=== PATIENT | male | born 1965 | race Caucasian/White ===

== ENCOUNTER 2016-10-31 11:36 | Outpatient (CLI) | payer OTHER ==
[~2016-10-31 11:36] MED LIST: /WARF5TA PO; ALPHA PROTEINASE INHIBITOR IV ONE; AMLO10TA PO; ASPI81CH PO; ATEN50TA2 PO; COMBAER6 INH; COUM7.5T PO; DILUENT IV ONE; FLEC50TA PO; GLIM2TAB PO; GLIM4TAB PO; JANU100T PO; LOVE0.8I SC; MAGN400T5 PO; METO50TA2 PO; NICO21PAT EXT; ROXI1TAB2 PO; TRAZ150T14 PO; VICT18IN SC; XARE15TA PO; ZOLO50TA PO; [UNRECOGNIZED DRUG - OTHER] PO
== END 2016-10-31 12:25 | disposition home or self-care (01) ==
LOC: M INFU 11:36
PROVIDERS: ATTEND Hospitalist
DX: E88.01 Alpha-1-antitrypsin deficiency (principal); J43.1 Panlobular emphysema; Z88.6 Allergy status to analgesic agent; Z88.5 Allergy status to narcotic agent; Z91.041 Radiographic dye allergy status; Z79.84 Long term (current) use of oral hypoglycemic drugs; Z79.01 Long term (current) use of anticoagulants; Z79.899 Other long term (current) drug therapy
CPT/HCPCS: 96365; J0256

== ENCOUNTER 2016-11-07 08:43 | Outpatient (CLI) | payer OTHER ==
[~2016-11-07] VITALS: Ht 172.7 cm; Wt 111.4 kg
[~2016-11-07 08:43] MED LIST changes: -ALPHA PROTEINASE INHIBITOR IV ONE; -DILUENT IV ONE
[2016-11-07] MEDS ORDERED: DILUENT IV ONE (09:30)
[2016-11-07] MEDS ORDERED: ALPHA PROTEINASE INHIBITOR IV ONE (09:30)
== END 2016-11-07 10:00 | disposition home or self-care (01) ==
LOC: M INFU 08:43
PROVIDERS: ATTEND Internal Medicine
DX: E88.01 Alpha-1-antitrypsin deficiency (principal); J43.1 Panlobular emphysema; I10 Essential (primary) hypertension; E11.9 Type 2 diabetes mellitus without complications; M32.9 Systemic lupus erythematosus, unspecified; I73.9 Peripheral vascular disease, unspecified; Z91.041 Radiographic dye allergy status; Z88.5 Allergy status to narcotic agent; Z88.6 Allergy status to analgesic agent; Z79.84 Long term (current) use of oral hypoglycemic drugs; Z79.01 Long term (current) use of anticoagulants; Z79.899 Other long term (current) drug therapy
CPT/HCPCS: 96365; J0256

== ENCOUNTER 2016-11-14 10:56 | Outpatient (CLI) | payer OTHER ==
[2016-11-14] MEDS ORDERED: DILUENT IV ONE (11:00)
[2016-11-14] MEDS ORDERED: ALPHA PROTEINASE INHIBITOR IV ONE (11:00)
== END 2016-11-14 12:00 | disposition home or self-care (01) ==
LOC: M INFU 10:56
PROVIDERS: ATTEND Internal Medicine
DX: E88.01 Alpha-1-antitrypsin deficiency (principal); J43.1 Panlobular emphysema; E11.9 Type 2 diabetes mellitus without complications; M32.9 Systemic lupus erythematosus, unspecified; M51.9 Unspecified thoracic, thoracolumbar and lumbosacral intervertebral disc disorder; Z91.041 Radiographic dye allergy status; Z88.5 Allergy status to narcotic agent; Z88.6 Allergy status to analgesic agent; Z79.84 Long term (current) use of oral hypoglycemic drugs; Z79.01 Long term (current) use of anticoagulants; Z87.442 Personal history of urinary calculi; Z86.718 Personal history of other venous thrombosis and embolism; Z79.899 Other long term (current) drug therapy; F17.200 Nicotine dependence, unspecified, uncomplicated
CPT/HCPCS: 96365; J0256

== ENCOUNTER → 2016-11-15 | Outpatient (REF) | payer OTHER ==
[2016-11-15 18:23] LABS: ALBUMIN/GLOBULIN RATIO 1.25 (1.00-1.93); ALKALINE PHOSPHATASE 106 U/L (45-117); ALT/SGPT 33 U/L (12-78); ANION GAP 9 MEQ/L (8-16); AST/SGOT 11 U/L (15-37); BILIRUBIN,TOTAL 0.3 MG/DL (0.2-1.0); BLOOD UREA NITROGEN 17 MG/DL (7-18); CALCIUM LEVEL 8.9 MG/DL (8.5-10.1); CARBON DIOXIDE LEVEL 27 MEQ/L (21-32); CHLORIDE LEVEL 105 MEQ/L (98-107); CREATININE FOR GFR 0.92 MG/DL (0.70-1.30); FREE T4 0.99 NG/DL (0.76-1.46); GLOMERULAR FILTRATION RATE > 60.0 (>56); GLUCOSE, FASTING 163 MG/DL (70-105); POTASSIUM SERUM 4.3 MEQ/L (3.5-5.1); SODIUM LEVEL 141 MEQ/L (136-145); TOTAL PROTEIN 7.2 GM/DL (6.4-8.2)
[2016-11-15 20:26] LABS: BASO % 0.6 % (0.0-1.0); EOS # 0.3 K/mm3 (0.0-0.50); EOS % 3.9 % (0.0-3.0); LARGE UNSTAINED CELL # 0.2 K/mm3 (0.0-0.4); LARGE UNSTAINED CELL % 2.5 % (0.0-4.0); LYMPH # 1.5 K/mm3 (1.5-4.5); LYMPH % 17.2 % (24.0-44.0); MEAN CORPUSCULAR HEMOGLOBIN 32.1 pg (27.0-33.0); MEAN CORPUSCULAR HGB CONC 34.4 g/dl (32.0-36.5); MEAN CORPUSCULAR VOLUME 93.2 fl (80.0-96.0); MONO # 0.5 K/mm3 (0.0-0.8); MONO % 5.6 % (0.0-5.0); NEUTROPHILS # 6.1 K/mm3 (1.8-7.7); NEUTROPHILS % 70.1 % (36.0-66.0); PLATELET COUNT, AUTOMATED 190 k/mm3 (150-450); RED CELL DISTRIBUTION WIDTH 12.5 % (11.5-14.5); WHITE BLOOD COUNT 8.7 K/mm3 (4.0-10.0)
== END ==
LOC: M SFHCLERA 11:51
PROVIDERS: ATTEND Family Medicine
DX: I31.3 Pericardial effusion (noninflammatory) (principal)

== ENCOUNTER → 2016-11-20 | Outpatient (REF) | payer OTHER ==
[2016-11-20 17:51] LABS: INR 1.58
== END ==
LOC: M SFHCLERA 10:12
PROVIDERS: ATTEND Family Medicine
DX: I82.402 Acute embolism and thrombosis of unspecified deep veins of left lower extremity (principal)

== ENCOUNTER 2016-11-21 09:25 | Outpatient (CLI) | payer OTHER ==
[~2016-11-21] VITALS: Ht 172.7 cm; Wt 111.4 kg
[2016-11-21] MEDS ORDERED: DILUENT IV ONE (09:45)
[2016-11-21] MEDS ORDERED: ALPHA PROTEINASE INHIBITOR IV ONE (09:45)
== END 2016-11-21 11:00 | disposition home or self-care (01) ==
LOC: M INFU 09:25
PROVIDERS: ATTEND Internal Medicine
DX: E88.01 Alpha-1-antitrypsin deficiency (principal); J43.1 Panlobular emphysema; I10 Essential (primary) hypertension; E11.9 Type 2 diabetes mellitus without complications; E78.5 Hyperlipidemia, unspecified; M32.9 Systemic lupus erythematosus, unspecified; M79.662 Pain in left lower leg; F32.9 Major depressive disorder, single episode, unspecified; F40.240 Claustrophobia; I73.9 Peripheral vascular disease, unspecified; Z79.84 Long term (current) use of oral hypoglycemic drugs; Z79.01 Long term (current) use of anticoagulants; Z88.6 Allergy status to analgesic agent; Z91.041 Radiographic dye allergy status; Z87.891 Personal history of nicotine dependence; Z79.899 Other long term (current) drug therapy
CPT/HCPCS: 96365; J0256

== ENCOUNTER 2016-11-28 09:31 | Outpatient (CLI) | payer OTHER ==
[~2016-11-28] VITALS: Ht 172.7 cm; Wt 111.4 kg
[~2016-11-28 09:31] MED LIST changes: +ALPHA PROTEINASE INHIBITOR IV ONE; +DILUENT IV ONE
== END 2016-11-28 10:30 | disposition home or self-care (01) ==
LOC: M INFU 09:31
PROVIDERS: ATTEND Internal Medicine
DX: E88.01 Alpha-1-antitrypsin deficiency (principal); J43.1 Panlobular emphysema; I10 Essential (primary) hypertension; E11.9 Type 2 diabetes mellitus without complications; Z79.84 Long term (current) use of oral hypoglycemic drugs; Z79.01 Long term (current) use of anticoagulants; Z79.899 Other long term (current) drug therapy; Z91.041 Radiographic dye allergy status; Z88.5 Allergy status to narcotic agent
CPT/HCPCS: 96365; J0256

== ENCOUNTER 2016-12-05 09:26 | Outpatient (CLI) | payer OTHER ==
[~2016-12-05] VITALS: Ht 172.7 cm; Wt 111.4 kg
[~2016-12-05 09:26] MED LIST changes: +ALPHA PROTEINASE INHIBITOR IV ONE; +DILUENT IV ONE
== END 2016-12-05 10:30 | disposition home or self-care (01) ==
LOC: M INFU 09:26
PROVIDERS: ATTEND Internal Medicine
DX: E88.01 Alpha-1-antitrypsin deficiency (principal); J43.1 Panlobular emphysema; I10 Essential (primary) hypertension; E11.9 Type 2 diabetes mellitus without complications; M32.9 Systemic lupus erythematosus, unspecified; I71.9 Aortic aneurysm of unspecified site, without rupture; M51.9 Unspecified thoracic, thoracolumbar and lumbosacral intervertebral disc disorder; Z79.84 Long term (current) use of oral hypoglycemic drugs; Z79.01 Long term (current) use of anticoagulants; Z88.6 Allergy status to analgesic agent; Z91.041 Radiographic dye allergy status; Z87.891 Personal history of nicotine dependence; Z79.899 Other long term (current) drug therapy
CPT/HCPCS: 96365; J0256

== ENCOUNTER → 2016-12-05 | Outpatient (CLI) | payer OTHER ==
[~2016-12-05] MED LIST changes: -ALPHA PROTEINASE INHIBITOR IV ONE; -DILUENT IV ONE
--- NOTE | 2016-12-05 20:03 | REP ---
Left shoulder five views: Comparisons 01/31/2016. There is acromioclavicular osteoarthritis, unchanged. The glenohumeral articulation is unremarkable. There are no calcifications. There is no fracture or dislocation. Mineralization is normal. Impression: Acromioclavicular osteoarthritis. Signed by Nick Ocampo MD 12/05/2016 07:54 P
== END ==
LOC: M LRY 14:24
PROVIDERS: ATTEND Family Medicine
DX: M19.012 Primary osteoarthritis, left shoulder (principal)

== ENCOUNTER → 2016-12-13 | Outpatient (CLI) | payer OTHER ==
[~2016-12-13] MED LIST changes: -ALPHA PROTEINASE INHIBITOR IV ONE; -DILUENT IV ONE
--- NOTE | 2016-12-13 16:21 | REP ---
Chest two views HISTORY: Hemoptysis Comparison: 11/25/2015 The lungs are clear. The heart is normal in size. The pulmonary vasculature is normal in appearance. Degenerative change is present in the thoracic spine. IMPRESSION: No acute disease. Signed by Ascencion Garrido MD 12/13/2016 04:13 P
== END ==
LOC: M LRY 15:55
PROVIDERS: ATTEND Family Medicine
DX: R04.2 Hemoptysis (principal)

== ENCOUNTER 2016-12-14 09:16 | Outpatient (CLI) | payer OTHER ==
[~2016-12-14 09:16] MED LIST changes: +ALPHA PROTEINASE INHIBITOR IV ONE; +DILUENT IV ONE
== END 2016-12-14 10:25 | disposition home or self-care (01) ==
LOC: M INFU 09:16
PROVIDERS: ATTEND Hospitalist
DX: E88.01 Alpha-1-antitrypsin deficiency (principal); J43.1 Panlobular emphysema; Z79.84 Long term (current) use of oral hypoglycemic drugs; Z79.01 Long term (current) use of anticoagulants; Z91.041 Radiographic dye allergy status; Z88.8 Allergy status to other drugs, medicaments and biological substances; Z88.5 Allergy status to narcotic agent; Z79.899 Other long term (current) drug therapy
CPT/HCPCS: 96365; J0256

== ENCOUNTER 2016-12-19 09:20 | Outpatient (CLI) | payer OTHER ==
[~2016-12-19] VITALS: Ht 172.7 cm; Wt 112.0 kg
== END 2016-12-19 10:25 | disposition home or self-care (01) ==
LOC: M INFU 09:20
PROVIDERS: ATTEND Internal Medicine
DX: E88.01 Alpha-1-antitrypsin deficiency (principal); Z88.5 Allergy status to narcotic agent; Z91.041 Radiographic dye allergy status
CPT/HCPCS: 96365; J0256

== ENCOUNTER 2016-12-26 07:00 | Outpatient (CLI) | payer OTHER ==
[~2016-12-26] VITALS: Ht 172.7 cm; Wt 112.7 kg
[~2016-12-26 07:00] MED LIST changes: +ALPHA PROTEINASE INHIBITOR IV ONE; +DILUENT IV ONE
== END 2016-12-26 08:00 | disposition home or self-care (01) ==
LOC: M INFU 07:00
PROVIDERS: ATTEND Internal Medicine
DX: E88.01 Alpha-1-antitrypsin deficiency (principal); E11.9 Type 2 diabetes mellitus without complications; M32.9 Systemic lupus erythematosus, unspecified; F32.9 Major depressive disorder, single episode, unspecified; Z72.0 Tobacco use; I10 Essential (primary) hypertension; Z79.84 Long term (current) use of oral hypoglycemic drugs; Z79.01 Long term (current) use of anticoagulants; Z88.6 Allergy status to analgesic agent; Z91.041 Radiographic dye allergy status; Z88.5 Allergy status to narcotic agent
CPT/HCPCS: 96365; J0256

== ENCOUNTER → 2016-12-26 | Outpatient (CLI) | payer OTHER ==
[~2016-12-26] MED LIST changes: -ALPHA PROTEINASE INHIBITOR IV ONE; -DILUENT IV ONE
[2016-12-26 10:41] LABS: BASO # 0.1 K/mm3 (0.0-0.2); BASO % 0.8 % (0.0-1.0); EOS # 0.8 K/mm3 (0.0-0.50); EOS % 8.4 % (0.0-3.0); LYMPH # 1.8 K/mm3 (1.5-4.5); MEAN CORPUSCULAR HEMOGLOBIN 32.4 pg (27.0-33.0); MEAN CORPUSCULAR HGB CONC 34.4 g/dl (32.0-36.5); MONO # 0.6 K/mm3 (0.0-0.8); MONO % 6.2 % (0.0-5.0); NEUTROPHILS % 65.2 % (36.0-66.0); RED CELL DISTRIBUTION WIDTH 13.1 % (11.5-14.5); WHITE BLOOD COUNT 9.2 K/mm3 (4.0-10.0)
[2016-12-26 11:06] LABS: IMMUNOGLOBULIN E 18.3 IU/ML (<100); IMMUNOGLOBULIN G 827 MG/DL (681-1648); IMMUNOGLOBULIN M 38.2 MG/DL (40-230)
== END ==
LOC: M SMT 08:57
PROVIDERS: ATTEND Allergy & Immunology Allergy
DX: Z01.82 Encounter for allergy testing (principal)

== ENCOUNTER 2017-01-02 08:54 | Outpatient (CLI) | payer OTHER ==
[~2017-01-02] VITALS: Ht 172.7 cm; Wt 112.7 kg
== END 2017-01-02 09:45 | disposition home or self-care (01) ==
LOC: M INFU 08:54
PROVIDERS: ATTEND General Practice
DX: E88.01 Alpha-1-antitrypsin deficiency (principal); J43.1 Panlobular emphysema; E11.9 Type 2 diabetes mellitus without complications; M32.9 Systemic lupus erythematosus, unspecified; Z88.8 Allergy status to other drugs, medicaments and biological substances; Z91.041 Radiographic dye allergy status; Z88.5 Allergy status to narcotic agent; Z72.0 Tobacco use; Z79.899 Other long term (current) drug therapy; Z79.84 Long term (current) use of oral hypoglycemic drugs; Z79.01 Long term (current) use of anticoagulants
CPT/HCPCS: 96365; J0256

== ENCOUNTER 2017-01-09 09:46 | Outpatient (CLI) | payer OTHER ==
[~2017-01-09] VITALS: Ht 172.7 cm; Wt 112.7 kg
== END 2017-01-09 10:50 | disposition home or self-care (01) ==
LOC: M INFU 09:46
PROVIDERS: ATTEND Internal Medicine
DX: E88.01 Alpha-1-antitrypsin deficiency (principal); Z88.5 Allergy status to narcotic agent; Z91.041 Radiographic dye allergy status; Z79.899 Other long term (current) drug therapy; Z79.01 Long term (current) use of anticoagulants
CPT/HCPCS: 96365; J0256

== ENCOUNTER 2017-01-16 09:25 | Outpatient (CLI) | payer OTHER | END 2017-01-16 10:05 | disposition home or self-care (01) | LOC: M INFU 09:25 | PROVIDERS: ATTEND Internal Medicine Nephrology | DX: E88.01 Alpha-1-antitrypsin deficiency (principal); Z88.5 Allergy status to narcotic agent; Z91.041 Radiographic dye allergy status; Z88.8 Allergy status to other drugs, medicaments and biological substances; Z79.84 Long term (current) use of oral hypoglycemic drugs; Z79.01 Long term (current) use of anticoagulants; Z79.899 Other long term (current) drug therapy | CPT/HCPCS: 96365; J0256 ==

== ENCOUNTER 2017-01-23 11:41 | Outpatient (CLI) | payer OTHER | END 2017-01-23 12:45 | disposition home or self-care (01) | LOC: M INFU 11:41 | PROVIDERS: ATTEND Hospitalist | DX: E88.01 Alpha-1-antitrypsin deficiency (principal); E11.9 Type 2 diabetes mellitus without complications; Z79.84 Long term (current) use of oral hypoglycemic drugs; Z88.5 Allergy status to narcotic agent; Z88.8 Allergy status to other drugs, medicaments and biological substances; Z79.01 Long term (current) use of anticoagulants; Z79.899 Other long term (current) drug therapy | CPT/HCPCS: 96365; J0256 ==

== ENCOUNTER 2017-01-30 10:57 | Outpatient (CLI) | payer OTHER ==
[~2017-01-30] VITALS: Ht 172.7 cm; Wt 111.8 kg
[~2017-01-30 10:57] MED LIST changes: -ALPHA PROTEINASE INHIBITOR IV ONE; -DILUENT IV ONE
[2017-01-30] MEDS ORDERED: ALPHA PROTEINASE INHIBITOR IV ONE (11:00)
[2017-01-30] MEDS ORDERED: DILUENT IV ONE (11:00)
== END 2017-01-30 12:15 | disposition home or self-care (01) ==
LOC: M INFU 10:57
PROVIDERS: ATTEND Family Medicine
DX: E88.01 Alpha-1-antitrypsin deficiency (principal); J43.1 Panlobular emphysema; M32.9 Systemic lupus erythematosus, unspecified; I10 Essential (primary) hypertension; E11.9 Type 2 diabetes mellitus without complications; Z91.041 Radiographic dye allergy status; Z88.8 Allergy status to other drugs, medicaments and biological substances; Z88.5 Allergy status to narcotic agent; Z72.0 Tobacco use; Z79.84 Long term (current) use of oral hypoglycemic drugs; Z79.01 Long term (current) use of anticoagulants; Z79.899 Other long term (current) drug therapy
CPT/HCPCS: 96365; J0256

== ENCOUNTER 2017-02-06 09:09 | Outpatient (CLI) | payer OTHER ==
[~2017-02-06] VITALS: Ht 172.7 cm; Wt 112.7 kg
[2017-02-06] MEDS ORDERED: ALPHA PROTEINASE INHIBITOR IV ONE (09:45)
[2017-02-06] MEDS ORDERED: DILUENT IV ONE (09:45)
== END 2017-02-06 10:50 | disposition home or self-care (01) ==
LOC: M INFU 09:09
PROVIDERS: ATTEND Internal Medicine
DX: E88.01 Alpha-1-antitrypsin deficiency (principal); M32.9 Systemic lupus erythematosus, unspecified; E11.9 Type 2 diabetes mellitus without complications; Z88.8 Allergy status to other drugs, medicaments and biological substances; Z91.041 Radiographic dye allergy status; Z72.0 Tobacco use; Z79.899 Other long term (current) drug therapy; Z79.01 Long term (current) use of anticoagulants; Z79.84 Long term (current) use of oral hypoglycemic drugs
CPT/HCPCS: 96365; J0256

== ENCOUNTER → 2017-02-06 | Outpatient (REF) | payer OTHER ==
[2017-02-06 17:47] LABS: INR 2.12
== END ==
LOC: M SFHCLERA 14:06
PROVIDERS: ATTEND Family Medicine
DX: Z51.81 Encounter for therapeutic drug level monitoring (principal); Z79.01 Long term (current) use of anticoagulants

== ENCOUNTER 2017-02-13 10:04 | Outpatient (CLI) | payer OTHER ==
[~2017-02-13] VITALS: Ht 172.7 cm; Wt 111.2 kg
[2017-02-13] MEDS ORDERED: ALPHA PROTEINASE INHIBITOR IV ONE (11:00)
[2017-02-13] MEDS ORDERED: DILUENT IV ONE (11:00)
== END 2017-02-13 11:30 | disposition home or self-care (01) ==
LOC: M INFU 10:04
PROVIDERS: ATTEND Internal Medicine Nephrology
DX: E88.01 Alpha-1-antitrypsin deficiency (principal); J43.1 Panlobular emphysema; E78.5 Hyperlipidemia, unspecified; I10 Essential (primary) hypertension; E11.9 Type 2 diabetes mellitus without complications; M32.9 Systemic lupus erythematosus, unspecified; Z72.0 Tobacco use; F32.9 Major depressive disorder, single episode, unspecified; Z88.5 Allergy status to narcotic agent; Z91.041 Radiographic dye allergy status; Z79.899 Other long term (current) drug therapy; Z79.01 Long term (current) use of anticoagulants; Z79.84 Long term (current) use of oral hypoglycemic drugs
CPT/HCPCS: 96365; J0256

== ENCOUNTER 2017-02-20 09:55 | Outpatient (CLI) | payer OTHER ==
[2017-02-20] MEDS ORDERED: ALPHA PROTEINASE INHIBITOR IV ONE (10:15)
[2017-02-20] MEDS ORDERED: DILUENT IV ONE (10:15)
== END 2017-02-20 11:00 | disposition home or self-care (01) ==
LOC: M INFU 09:55
PROVIDERS: ATTEND Internal Medicine
DX: E88.01 Alpha-1-antitrypsin deficiency (principal); J43.1 Panlobular emphysema; I10 Essential (primary) hypertension; E11.9 Type 2 diabetes mellitus without complications; Z88.8 Allergy status to other drugs, medicaments and biological substances; Z88.5 Allergy status to narcotic agent; Z91.041 Radiographic dye allergy status; Z79.84 Long term (current) use of oral hypoglycemic drugs; Z79.01 Long term (current) use of anticoagulants; Z79.899 Other long term (current) drug therapy
CPT/HCPCS: 96365; J0256

== ENCOUNTER 2017-02-27 09:37 | Outpatient (CLI) | payer OTHER ==
[~2017-02-27] VITALS: Ht 172.7 cm; Wt 112.7 kg
[2017-02-27] MEDS ORDERED: ALPHA PROTEINASE INHIBITOR IV SCH (11:00)
[2017-02-27] MEDS ORDERED: DILUENT IV SCH (11:00)
== END 2017-02-27 11:10 | disposition home or self-care (01) ==
LOC: M INFU 09:37
PROVIDERS: ATTEND Internal Medicine
DX: E88.01 Alpha-1-antitrypsin deficiency (principal); J43.1 Panlobular emphysema; I10 Essential (primary) hypertension; E11.9 Type 2 diabetes mellitus without complications; Z79.01 Long term (current) use of anticoagulants; Z79.84 Long term (current) use of oral hypoglycemic drugs; Z79.899 Other long term (current) drug therapy; Z88.8 Allergy status to other drugs, medicaments and biological substances; Z88.5 Allergy status to narcotic agent; Z91.041 Radiographic dye allergy status
CPT/HCPCS: 96365; J0256

== ENCOUNTER → 2017-02-28 | Outpatient (REF) | payer OTHER | LOC: M SFHCLERA 10:06 | PROVIDERS: ATTEND Family Medicine | DX: I82.402 Acute embolism and thrombosis of unspecified deep veins of left lower extremity (principal) ==

== ENCOUNTER 2017-03-06 09:10 | Outpatient (CLI) | payer OTHER ==
[~2017-03-06 09:10] MED LIST changes: +ALPHA PROTEINASE INHIBITOR IV ONE; +DILUENT IV ONE
== END 2017-03-06 10:15 | disposition home or self-care (01) ==
LOC: M INFU 09:10
PROVIDERS: ATTEND Hospitalist
DX: E88.01 Alpha-1-antitrypsin deficiency (principal); J43.1 Panlobular emphysema; Z72.0 Tobacco use; Z88.5 Allergy status to narcotic agent; Z91.041 Radiographic dye allergy status; Z88.8 Allergy status to other drugs, medicaments and biological substances; Z79.84 Long term (current) use of oral hypoglycemic drugs; Z79.01 Long term (current) use of anticoagulants; Z79.899 Other long term (current) drug therapy
CPT/HCPCS: 96365; J0256

== ENCOUNTER → 2017-03-12 | Outpatient (CLI) | payer OTHER ==
[~2017-03-12] MED LIST changes: -ALPHA PROTEINASE INHIBITOR IV ONE; -DILUENT IV ONE
--- NOTE | 2017-03-12 09:09 | REP ---
Clinical: Preoperative assessment . Comparison: 12/13/2016 . Technique: PA and lateral. Findings: The mediastinum and cardiac silhouette are normal. The lung ann chronic stable changes without acute consolidation, effusion, or pneumothorax. The skeletal structures demonstrate degenerative changes to the thoracic spine with stable alignment and no obvious acute fracture / compression injury. Impression: 1. No acute cardiopulmonary process. Signed by Diego De MD 03/12/2017 09:00 A
== END ==
LOC: M LRY 08:26
PROVIDERS: ATTEND Family Medicine
DX: Z01.818 Encounter for other preprocedural examination (principal); M75.112 Incomplete rotator cuff tear or rupture of left shoulder, not specified as traumatic

== ENCOUNTER → 2017-03-12 | Outpatient (REF) | payer OTHER ==
[2017-03-12 11:35] LABS: INR 1.65
[2017-03-12 11:38] LABS: MEAN CORPUSCULAR HEMOGLOBIN 32.2 pg (27.0-33.0); MEAN CORPUSCULAR HGB CONC 34.3 g/dl (32.0-36.5); MEAN CORPUSCULAR VOLUME 93.8 fl (80.0-96.0); RED CELL DISTRIBUTION WIDTH 12.5 % (11.5-14.5); WHITE BLOOD COUNT 8.7 K/mm3 (4.0-10.0)
[2017-03-12 11:43] LABS: ALBUMIN 3.7 GM/DL (3.2-5.2); ALBUMIN/GLOBULIN RATIO 1.19 (1.00-1.93); ALKALINE PHOSPHATASE 100 U/L (45-117); ALT/SGPT 37 U/L (12-78); ANION GAP 9 MEQ/L (8-16); AST/SGOT 18 U/L (15-37); BILIRUBIN,TOTAL 0.3 MG/DL (0.2-1.0); BLOOD UREA NITROGEN 16 MG/DL (7-18); CALCIUM LEVEL 8.2 MG/DL (8.5-10.1); CARBON DIOXIDE LEVEL 25 MEQ/L (21-32); CHLORIDE LEVEL 105 MEQ/L (98-107); CREATININE FOR GFR 0.94 MG/DL (0.70-1.30); GLOMERULAR FILTRATION RATE > 60.0 (>56); GLUCOSE, FASTING 266 MG/DL (70-105); POTASSIUM SERUM 3.9 MEQ/L (3.5-5.1); SODIUM LEVEL 139 MEQ/L (136-145); TOTAL PROTEIN 6.8 GM/DL (6.4-8.2)
== END ==
LOC: M SFHCLERA 08:04
PROVIDERS: ATTEND Family Medicine
DX: Z01.818 Encounter for other preprocedural examination (principal)

== ENCOUNTER 2017-03-13 09:29 | Outpatient (CLI) | payer OTHER ==
[~2017-03-13] VITALS: Ht 172.7 cm; Wt 112.7 kg
[2017-03-13] MEDS ORDERED: DILUENT IV ONE (09:30)
[2017-03-13] MEDS ORDERED: ALPHA PROTEINASE INHIBITOR IV ONE (09:30)
== END 2017-03-13 10:45 | disposition home or self-care (01) ==
LOC: M INFU 09:29
PROVIDERS: ATTEND Internal Medicine
DX: E88.01 Alpha-1-antitrypsin deficiency (principal); J43.1 Panlobular emphysema; Z88.8 Allergy status to other drugs, medicaments and biological substances; Z91.041 Radiographic dye allergy status; Z72.0 Tobacco use; Z79.01 Long term (current) use of anticoagulants; Z79.899 Other long term (current) drug therapy
CPT/HCPCS: 96365; J0256

== ENCOUNTER 2017-03-19 09:35 | Outpatient (CLI) | payer OTHER ==
[~2017-03-19] VITALS: Ht 172.7 cm; Wt 112.7 kg
[2017-03-19] MEDS ORDERED: ALPHA PROTEINASE INHIBITOR IV ONE (10:00)
[2017-03-19] MEDS ORDERED: DILUENT IV ONE (10:00)
== END 2017-03-19 10:45 | disposition home or self-care (01) ==
LOC: M INFU 09:35
PROVIDERS: ATTEND Family Medicine
DX: E88.01 Alpha-1-antitrypsin deficiency (principal); J43.1 Panlobular emphysema; Z72.0 Tobacco use; Z88.8 Allergy status to other drugs, medicaments and biological substances; Z91.041 Radiographic dye allergy status; Z79.01 Long term (current) use of anticoagulants; Z79.84 Long term (current) use of oral hypoglycemic drugs; Z79.899 Other long term (current) drug therapy
CPT/HCPCS: 96365; J0256

== ENCOUNTER 2017-03-22 21:46 | Emergency (ER) | payer OTHER ==
[~2017-03-22] VITALS: Ht 172.7 cm; Wt 114.3 kg
[2017-03-22] MEDS ORDERED: SING10TA32 PO (22:05)
[2017-03-22] MEDS ORDERED: ALOG6.25 PO (22:05)
[2017-03-22] MEDS ORDERED: CLAR1TAB2 PO (22:05)
[2017-03-22] MEDS ORDERED: LOVE0.6I2 SC (22:05)
[2017-03-22] MEDS ORDERED: ATOR1TAB19 PO (22:05)
[2017-03-22] MEDS ORDERED: [UNRECOGNIZED DRUG - CODE] IV (22:05)
[2017-03-22] MEDS ORDERED: NS 1,000 ML IV ONE (23:45)
[2017-03-22] MEDS ORDERED: PERCOCET 5MG/325MG TAB PO ONE (23:45)
[2017-03-22] MEDS ORDERED: oxyCODONE 5MG TAB PO ONE (23:45)
[2017-03-23] LABS: BASO % 0.3 % (0.0-1.0); EOS # 0.5 K/mm3 (0.0-0.50); LARGE UNSTAINED CELL # 0.2 K/mm3 (0.0-0.4); LARGE UNSTAINED CELL % 1.7 % (0.0-4.0); LYMPH # 1.8 K/mm3 (1.5-4.5); LYMPH % 21.6 % (24.0-44.0); MEAN CORPUSCULAR HEMOGLOBIN 32.5 pg (27.0-33.0); MEAN CORPUSCULAR HGB CONC 35.4 g/dl (32.0-36.5); MEAN CORPUSCULAR VOLUME 91.7 fl (80.0-96.0); MONO # 0.5 K/mm3 (0.0-0.8); MONO % 6.1 % (0.0-5.0); NEUTROPHILS # 5.4 K/mm3 (1.8-7.7); NEUTROPHILS % 64.3 % (36.0-66.0); PLATELET COUNT, AUTOMATED 134 k/mm3 (150-450); RED CELL DISTRIBUTION WIDTH 12.3 % (11.5-14.5); WHITE BLOOD COUNT 8.4 K/mm3 (4.0-10.0)
[2017-03-23 00:27] LABS: ANION GAP 6 MEQ/L (8-16); BLOOD UREA NITROGEN 14 MG/DL (7-18); CALCIUM LEVEL 9.1 MG/DL (8.5-10.1); CARBON DIOXIDE LEVEL 28 MEQ/L (21-32); CHLORIDE LEVEL 103 MEQ/L (98-107); GLOMERULAR FILTRATION RATE > 60.0 (>56); GLUCOSE, FASTING 204 MG/DL (70-105); POTASSIUM SERUM 3.9 MEQ/L (3.5-5.1); SODIUM LEVEL 137 MEQ/L (136-145)
[2017-03-23 00:36] LABS: ERYTHROCYTE SEDIMENTATION RATE 12 mm/hr (0-20)
[2017-03-23] MEDS ORDERED: KEFL500C7 PO (00:41)
[2017-03-23] MEDS ORDERED: CEPHALEXIN 500 MG CAP PO ONE (00:45)
[2017-03-23 00:46] VITALS: BP 156/94
--- NOTE | 2017-03-23 06:54 | REP ---
Clinical: Trauma and swelling. Technique: Internal rotation, external rotation, and Y view. Comparison: 12/05/2016. Findings: Current examination demonstrates widening of the acromioclavicular joint in relation to prior examination and requires correlation with mechanism of injury and point of tenderness as AC joint separation is suggested. Small bony fragments appear well corticated and relatively stable when compared to prior examination suggesting sequelae of old injury and degenerative change. The glenohumeral joint appears intact without fracture or dislocation. Impression: Comparison to prior examination suggests AC joint separation. No obvious acute fracture. Signed by Diego De MD 03/23/2017 06:44 A
== END 2017-03-23 01:22 | disposition home or self-care (01) ==
LOC: M ED 23:45
DX: L03.114 Cellulitis of left upper limb (principal); I48.91 Unspecified atrial fibrillation; E11.9 Type 2 diabetes mellitus without complications; I10 Essential (primary) hypertension; E78.5 Hyperlipidemia, unspecified; Z87.442 Personal history of urinary calculi; E66.9 Obesity, unspecified; F17.210 Nicotine dependence, cigarettes, uncomplicated; Z91.041 Radiographic dye allergy status; Z79.01 Long term (current) use of anticoagulants; Z79.899 Other long term (current) drug therapy

== ENCOUNTER → 2017-03-23 | Outpatient (REF) | payer OTHER ==
[~2017-03-23] MED LIST changes: +ALOG6.25 PO; +ATOR1TAB19 PO; +CLAR1TAB2 PO; +KEFL500C7 PO; +LOVE0.6I2 SC; +SING10TA32 PO; +[UNRECOGNIZED DRUG - CODE] IV
[2017-03-23 18:08] LABS: INR 1.26
[2017-03-23 18:12] LABS: ALBUMIN 3.6 GM/DL (3.2-5.2); ALBUMIN/GLOBULIN RATIO 1.09 (1.00-1.93); ALKALINE PHOSPHATASE 87 U/L (45-117); ALT/SGPT 46 U/L (12-78); ANION GAP 6 MEQ/L (8-16); AST/SGOT 15 U/L (15-37); BILIRUBIN,TOTAL 0.5 MG/DL (0.2-1.0); BLOOD UREA NITROGEN 13 MG/DL (7-18); CALCIUM LEVEL 8.6 MG/DL (8.5-10.1); CARBON DIOXIDE LEVEL 29 MEQ/L (21-32); CHLORIDE LEVEL 102 MEQ/L (98-107); CREATININE FOR GFR 0.94 MG/DL (0.70-1.30); GLOMERULAR FILTRATION RATE > 60.0 (>56); GLUCOSE, FASTING 262 MG/DL (70-105); POTASSIUM SERUM 4.3 MEQ/L (3.5-5.1); SODIUM LEVEL 137 MEQ/L (136-145); TOTAL PROTEIN 6.9 GM/DL (6.4-8.2)
== END ==
LOC: M SFHCLERA 11:37
PROVIDERS: ATTEND Family Medicine
DX: E11.8 Type 2 diabetes mellitus with unspecified complications (principal); I82.402 Acute embolism and thrombosis of unspecified deep veins of left lower extremity

== ENCOUNTER 2017-03-27 09:08 | Outpatient (CLI) | payer OTHER ==
[~2017-03-27 09:08] MED LIST changes: +ALPHA PROTEINASE INHIBITOR IV SCH; +DILUENT IV SCH
== END 2017-03-27 10:25 | disposition home or self-care (01) ==
LOC: M INFU 09:08
PROVIDERS: ATTEND Family Medicine
DX: E88.01 Alpha-1-antitrypsin deficiency (principal); J43.1 Panlobular emphysema; Z88.8 Allergy status to other drugs, medicaments and biological substances; Z91.041 Radiographic dye allergy status; Z72.0 Tobacco use; Z79.84 Long term (current) use of oral hypoglycemic drugs; Z79.01 Long term (current) use of anticoagulants; Z79.899 Other long term (current) drug therapy

== ENCOUNTER → 2017-03-28 | Outpatient (REF) | payer OTHER ==
[~2017-03-28] MED LIST changes: -ALPHA PROTEINASE INHIBITOR IV SCH; -DILUENT IV SCH
[2017-03-28 11:35] LABS: INR 1.75
[2017-03-28 11:37] LABS: MEAN CORPUSCULAR HEMOGLOBIN 32.7 pg (27.0-33.0); MEAN CORPUSCULAR VOLUME 93.4 fl (80.0-96.0); RED CELL DISTRIBUTION WIDTH 12.3 % (11.5-14.5); WHITE BLOOD COUNT 8.3 K/mm3 (4.0-10.0)
[2017-03-28 11:45] LABS: ALBUMIN 3.5 GM/DL (3.2-5.2); ALKALINE PHOSPHATASE 97 U/L (45-117); ALT/SGPT 67 U/L (12-78); ANION GAP 6 MEQ/L (8-16); AST/SGOT 33 U/L (15-37); BILIRUBIN,TOTAL 0.3 MG/DL (0.2-1.0); BLOOD UREA NITROGEN 14 MG/DL (7-18); CALCIUM LEVEL 8.7 MG/DL (8.5-10.1); CARBON DIOXIDE LEVEL 27 MEQ/L (21-32); CHLORIDE LEVEL 104 MEQ/L (98-107); GLOMERULAR FILTRATION RATE > 60.0 (>56); GLUCOSE, FASTING 387 MG/DL (70-105); POTASSIUM SERUM 4.5 MEQ/L (3.5-5.1); SODIUM LEVEL 137 MEQ/L (136-145)
[2017-03-28 12:47] LABS: EOSINOPHILS 6 % (0-5)
== END ==
LOC: M SFHCLERA 09:58
PROVIDERS: ATTEND Family Medicine
DX: T81.4XXA Infection following a procedure, initial encounter (principal); L03.90 Cellulitis, unspecified; I48.91 Unspecified atrial fibrillation; Y83.9 Surgical procedure, unspecified as the cause of abnormal reaction of the patient, or of later complication, without mention of misadventure at the time of the procedure

== ENCOUNTER → 2017-04-02 | Outpatient (REF) | payer OTHER ==
[2017-04-02 16:52] LABS: INR 2.39
== END ==
LOC: M SFHCLERA 09:57
PROVIDERS: ATTEND Family Medicine
DX: I48.91 Unspecified atrial fibrillation (principal)

== ENCOUNTER 2017-04-04 13:05 | Outpatient (CLI) | payer OTHER ==
[2017-04-04] MEDS ORDERED: DILUENT IV ONE (13:15)
[2017-04-04] MEDS ORDERED: ALPHA PROTEINASE INHIBITOR IV ONE (13:15)
== END 2017-04-04 14:15 | disposition home or self-care (01) ==
LOC: M INFU 13:05
PROVIDERS: ATTEND Internal Medicine
DX: E88.01 Alpha-1-antitrypsin deficiency (principal); J43.1 Panlobular emphysema; Z72.0 Tobacco use; Z88.8 Allergy status to other drugs, medicaments and biological substances; Z91.041 Radiographic dye allergy status; Z79.01 Long term (current) use of anticoagulants; Z79.84 Long term (current) use of oral hypoglycemic drugs; Z79.899 Other long term (current) drug therapy

== ENCOUNTER 2017-04-10 12:14 | Outpatient (CLI) | payer OTHER ==
[~2017-04-10] VITALS: Ht 172.7 cm; Wt 112.7 kg
[~2017-04-10 12:14] MED LIST changes: +ALPHA PROTEINASE INHIBITOR IV ONE; +DILUENT IV ONE
== END 2017-04-10 13:15 | disposition home or self-care (01) ==
LOC: M INFU 12:14
PROVIDERS: ATTEND Internal Medicine Nephrology
DX: E88.01 Alpha-1-antitrypsin deficiency (principal); J43.1 Panlobular emphysema; Z88.8 Allergy status to other drugs, medicaments and biological substances; Z91.041 Radiographic dye allergy status; Z79.01 Long term (current) use of anticoagulants; Z79.84 Long term (current) use of oral hypoglycemic drugs; Z79.899 Other long term (current) drug therapy; Z72.0 Tobacco use

== ENCOUNTER 2017-04-17 12:29 | Outpatient (CLI) | payer OTHER ==
[~2017-04-17] VITALS: Ht 172.7 cm; Wt 111.6 kg
== END 2017-04-17 13:40 | disposition home or self-care (01) ==
LOC: M INFU 12:29
PROVIDERS: ATTEND Hospitalist
DX: E88.01 Alpha-1-antitrypsin deficiency (principal); Z88.8 Allergy status to other drugs, medicaments and biological substances; Z88.5 Allergy status to narcotic agent; Z79.01 Long term (current) use of anticoagulants; Z91.041 Radiographic dye allergy status; Z79.899 Other long term (current) drug therapy

== ENCOUNTER 2017-04-24 09:37 | Outpatient (CLI) | payer OTHER ==
[~2017-04-24] VITALS: Ht 154.9 cm; Wt 112.7 kg
[~2017-04-24 09:37] MED LIST changes: -ALPHA PROTEINASE INHIBITOR IV ONE; -DILUENT IV ONE
[2017-04-24] MEDS ORDERED: ALPHA PROTEINASE INHIBITOR IV ONE (10:00)
[2017-04-24] MEDS ORDERED: DILUENT IV ONE (10:00)
== END 2017-04-24 10:40 | disposition home or self-care (01) ==
LOC: M INFU 09:37
PROVIDERS: ATTEND Internal Medicine
DX: E88.01 Alpha-1-antitrypsin deficiency (principal); J43.1 Panlobular emphysema; Z88.8 Allergy status to other drugs, medicaments and biological substances; Z91.041 Radiographic dye allergy status; Z79.84 Long term (current) use of oral hypoglycemic drugs; Z79.01 Long term (current) use of anticoagulants; Z79.899 Other long term (current) drug therapy; Z72.0 Tobacco use

== ENCOUNTER 2017-05-02 13:13 | Outpatient (CLI) | payer OTHER ==
[~2017-05-02] VITALS: Ht 172.7 cm; Wt 112.7 kg
[~2017-05-02 13:13] MED LIST changes: +KEFL500C17 PO; -KEFL500C7 PO; -METO50TA2 PO; +METO50TA7 PO; -TRAZ150T14 PO; +TRAZ1TAB14 PO
[2017-05-02] MEDS ORDERED: ALPHA PROTEINASE INHIBITOR IV ONE (14:00)
[2017-05-02] MEDS ORDERED: DILUENT IV ONE (14:00)
== END 2017-05-02 14:10 | disposition home or self-care (01) ==
LOC: M INFU 13:13
PROVIDERS: ATTEND Internal Medicine
DX: E88.01 Alpha-1-antitrypsin deficiency (principal); J43.1 Panlobular emphysema; Z88.8 Allergy status to other drugs, medicaments and biological substances; Z91.041 Radiographic dye allergy status; Z72.0 Tobacco use; Z79.01 Long term (current) use of anticoagulants; Z79.84 Long term (current) use of oral hypoglycemic drugs; Z79.899 Other long term (current) drug therapy

== ENCOUNTER → 2017-05-03 | Outpatient (CLI) | payer OTHER ==
[~2017-05-03] MED LIST changes: +TRUL10IN SC
[2017-05-10 00:07] LABS: STREP PNEUMO TYPE 12F 0.9 ug/mL (>1.3); STREP PNEUMO TYPE 18C >22.4 ug/mL (>1.3); STREP PNEUMO TYPE 19A >23.2 ug/mL (>1.3); STREP PNEUMO TYPE 19F 6.9 ug/mL (>1.3); STREP PNEUMO TYPE 23F 0.8 ug/mL (>1.3); STREP PNEUMO TYPE 6B 14.1 ug/mL (>1.3); STREP PNEUMO TYPE 7F 5.9 ug/mL (>1.3); STREP PNEUMO TYPE 9N 2.4 ug/mL (>1.3); STREP PNEUMO TYPE 9V 2.5 ug/mL (>1.3)
== END ==
LOC: M SMT 09:11
PROVIDERS: ATTEND Allergy & Immunology Allergy
DX: J32.9 Chronic sinusitis, unspecified (principal)

== ENCOUNTER 2017-05-08 14:05 | Outpatient (CLI) | payer OTHER ==
[~2017-05-08 14:05] MED LIST changes: -TRUL10IN SC
[2017-05-08] MEDS ORDERED: ALPHA PROTEINASE INHIBITOR IV ONE (14:30)
[2017-05-08] MEDS ORDERED: DILUENT IV ONE (14:30)
== END 2017-05-08 15:45 | disposition home or self-care (01) ==
LOC: M INFU 14:05
PROVIDERS: ATTEND Internal Medicine Nephrology
DX: E88.01 Alpha-1-antitrypsin deficiency (principal); J43.1 Panlobular emphysema; Z72.0 Tobacco use; Z88.8 Allergy status to other drugs, medicaments and biological substances; Z91.041 Radiographic dye allergy status; Z79.01 Long term (current) use of anticoagulants; Z79.84 Long term (current) use of oral hypoglycemic drugs; Z79.899 Other long term (current) drug therapy

== ENCOUNTER → 2017-05-08 | Outpatient (CLI) | payer OTHER ==
--- NOTE | 2017-05-08 15:58 | REP ---
MAXILLOFACIAL CT WITHOUT CONTRAST: HISTORY: Chronic sinusitis. The patient is status post right inferior nasal turbinectomy and partial left inferior nasal turbinectomy and bilateral uncinectomy. Mild mucosal thickening is present in the right maxillary sinus. Minimal mucosal thickening is present in the ethmoid and left maxillary sinuses. The remaining sinuses are clear. Mucosal thickening involves the right ostiomeatal unit. The left ostiomeatal unit is patent. The middle nasal turbinates are partially paradoxical. There is mild deviation of the nasal septum to the left. A spur is present arising from the left side of the nasal septum. The cribriform plate, medial berry of the orbits and optic canals are intact. The carotid canals form a segment of the posterolateral berry of the sphenoid sinus. IMPRESSION: 1. Postoperative change as described above. 2. Sinus mucosal thickening as described above. Signed by Ascencion Garrido MD 05/08/2017 04:12 P
== END ==
LOC: M RAD 13:53
PROVIDERS: ATTEND Nurse Practitioner Family
DX: J32.9 Chronic sinusitis, unspecified (principal); J34.89 Other specified disorders of nose and nasal sinuses

== ENCOUNTER 2017-05-15 13:06 | Outpatient (CLI) | payer OTHER ==
[2017-05-15] MEDS ORDERED: ALPHA PROTEINASE INHIBITOR IV ONE (14:00)
[2017-05-15] MEDS ORDERED: DILUENT IV ONE (14:00)
[2017-05-15] MEDS ORDERED: TRUL10IN SC (14:26)
== END 2017-05-15 14:10 | disposition home or self-care (01) ==
LOC: M INFU 13:06
PROVIDERS: ATTEND Hospitalist
DX: E88.01 Alpha-1-antitrypsin deficiency (principal); J43.1 Panlobular emphysema; Z72.0 Tobacco use; Z88.8 Allergy status to other drugs, medicaments and biological substances; Z91.041 Radiographic dye allergy status; Z79.01 Long term (current) use of anticoagulants; Z79.84 Long term (current) use of oral hypoglycemic drugs; Z79.899 Other long term (current) drug therapy

== ENCOUNTER 2017-05-22 08:47 | Outpatient (CLI) | payer OTHER ==
[~2017-05-22 08:47] MED LIST changes: +TRUL10IN SC
[2017-05-22] MEDS ORDERED: ALPHA PROTEINASE INHIBITOR IV SCH (09:00)
[2017-05-22] MEDS ORDERED: DILUENT IV SCH (09:00)
== END 2017-05-22 10:00 | disposition home or self-care (01) ==
LOC: M INFU 08:47
PROVIDERS: ATTEND Internal Medicine
DX: E88.01 Alpha-1-antitrypsin deficiency (principal); J43.1 Panlobular emphysema; Z88.8 Allergy status to other drugs, medicaments and biological substances; Z91.041 Radiographic dye allergy status; Z79.01 Long term (current) use of anticoagulants; Z79.84 Long term (current) use of oral hypoglycemic drugs; Z79.899 Other long term (current) drug therapy; Z72.0 Tobacco use

== ENCOUNTER 2017-05-29 11:47 | Outpatient (CLI) | payer OTHER ==
[~2017-05-29] VITALS: Ht 172.7 cm; Wt 112.7 kg
[2017-05-29] MEDS ORDERED: ALPHA PROTEINASE INHIBITOR IV ONE (12:00)
[2017-05-29] MEDS ORDERED: DILUENT IV ONE (12:00)
== END 2017-05-29 13:00 | disposition home or self-care (01) ==
LOC: M INFU 11:47
PROVIDERS: ATTEND Internal Medicine
DX: E88.01 Alpha-1-antitrypsin deficiency (principal); J43.1 Panlobular emphysema; Z88.8 Allergy status to other drugs, medicaments and biological substances; Z91.041 Radiographic dye allergy status; Z88.5 Allergy status to narcotic agent; Z79.01 Long term (current) use of anticoagulants; Z79.84 Long term (current) use of oral hypoglycemic drugs; Z79.899 Other long term (current) drug therapy; Z72.0 Tobacco use

== ENCOUNTER 2017-06-06 12:02 | Outpatient (CLI) | payer OTHER ==
[~2017-06-06 12:02] MED LIST changes: +ALPHA PROTEINASE INHIBITOR IV ONE; +DILUENT IV ONE
== END 2017-06-06 13:15 | disposition home or self-care (01) ==
LOC: M INFU 12:02
PROVIDERS: ATTEND Internal Medicine
DX: E88.01 Alpha-1-antitrypsin deficiency (principal); J43.1 Panlobular emphysema; Z91.041 Radiographic dye allergy status; Z88.8 Allergy status to other drugs, medicaments and biological substances; Z88.5 Allergy status to narcotic agent; Z72.0 Tobacco use; Z79.01 Long term (current) use of anticoagulants; Z79.84 Long term (current) use of oral hypoglycemic drugs; Z79.899 Other long term (current) drug therapy
CPT/HCPCS: 96365; J0256

== ENCOUNTER → 2017-06-06 | Outpatient (REF) | payer OTHER ==
[2017-06-06 19:34] LABS: INR 2.14
[2017-06-06 19:44] LABS: ANION GAP 9 MEQ/L (8-16); BLOOD UREA NITROGEN 16 MG/DL (7-18); CALCIUM LEVEL 8.7 MG/DL (8.5-10.1); CARBON DIOXIDE LEVEL 27 MEQ/L (21-32); CHLORIDE LEVEL 105 MEQ/L (98-107); CREATININE FOR GFR 0.97 MG/DL (0.70-1.30); GLOMERULAR FILTRATION RATE > 60.0 (>56); GLUCOSE, FASTING 297 MG/DL (70-105); POTASSIUM SERUM 4.3 MEQ/L (3.5-5.1); SODIUM LEVEL 141 MEQ/L (136-145)
== END ==
LOC: M SFHCLERA 11:15
PROVIDERS: ATTEND Family Medicine
DX: E11.8 Type 2 diabetes mellitus with unspecified complications (principal); I10 Essential (primary) hypertension; Z79.01 Long term (current) use of anticoagulants

== ENCOUNTER 2017-06-12 08:01 | Outpatient (CLI) | payer OTHER | END 2017-06-12 09:05 | disposition home or self-care (01) | LOC: M INFU 08:01 | PROVIDERS: ATTEND Hospitalist | DX: E88.01 Alpha-1-antitrypsin deficiency (principal); J43.1 Panlobular emphysema; Z88.8 Allergy status to other drugs, medicaments and biological substances; Z88.5 Allergy status to narcotic agent; Z91.041 Radiographic dye allergy status; Z79.01 Long term (current) use of anticoagulants; Z79.84 Long term (current) use of oral hypoglycemic drugs; Z79.899 Other long term (current) drug therapy; Z72.0 Tobacco use | CPT/HCPCS: 96365; J0256 ==

== ENCOUNTER 2017-06-19 09:08 | Outpatient (CLI) | payer OTHER ==
[~2017-06-19 09:08] MED LIST changes: -ALPHA PROTEINASE INHIBITOR IV ONE; -DILUENT IV ONE
[2017-06-19] MEDS ORDERED: ALPHA PROTEINASE INHIBITOR IV ONE (09:30)
[2017-06-19] MEDS ORDERED: DILUENT IV ONE (09:30)
== END 2017-06-19 10:10 | disposition home or self-care (01) ==
LOC: M INFU 09:08
PROVIDERS: ATTEND General Practice
DX: E88.01 Alpha-1-antitrypsin deficiency (principal); J43.1 Panlobular emphysema; Z72.0 Tobacco use; Z88.8 Allergy status to other drugs, medicaments and biological substances; Z88.5 Allergy status to narcotic agent; Z91.041 Radiographic dye allergy status; Z79.01 Long term (current) use of anticoagulants; Z79.84 Long term (current) use of oral hypoglycemic drugs; Z79.899 Other long term (current) drug therapy
CPT/HCPCS: 96365; J0256

== ENCOUNTER 2017-06-26 08:54 | Outpatient (CLI) | payer OTHER ==
[~2017-06-26] VITALS: Ht 172.7 cm; Wt 112.7 kg
[2017-06-26] MEDS ORDERED: ALPHA PROTEINASE INHIBITOR IV ONE (09:00)
[2017-06-26] MEDS ORDERED: DILUENT IV ONE (09:00)
== END 2017-06-26 09:40 | disposition home or self-care (01) ==
LOC: M INFU 08:54
PROVIDERS: ATTEND Internal Medicine
DX: E88.01 Alpha-1-antitrypsin deficiency (principal); J43.1 Panlobular emphysema; Z88.8 Allergy status to other drugs, medicaments and biological substances; Z88.5 Allergy status to narcotic agent; Z91.041 Radiographic dye allergy status; Z72.0 Tobacco use; Z79.01 Long term (current) use of anticoagulants; Z79.84 Long term (current) use of oral hypoglycemic drugs; Z79.899 Other long term (current) drug therapy
CPT/HCPCS: 96365; J0256

== ENCOUNTER 2017-07-03 14:20 | Outpatient (CLI) | payer OTHER ==
[2017-07-03] MEDS ORDERED: ALPHA PROTEINASE INHIBITOR IV ONE (15:00)
[2017-07-03] MEDS ORDERED: DILUENT IV ONE (15:00)
== END 2017-07-03 15:20 | disposition home or self-care (01) ==
LOC: M INFU 14:20
PROVIDERS: ATTEND Internal Medicine
DX: E88.01 Alpha-1-antitrypsin deficiency (principal); J43.1 Panlobular emphysema; Z88.8 Allergy status to other drugs, medicaments and biological substances; Z88.5 Allergy status to narcotic agent; Z91.041 Radiographic dye allergy status; Z79.01 Long term (current) use of anticoagulants; Z79.899 Other long term (current) drug therapy; Z79.84 Long term (current) use of oral hypoglycemic drugs; Z72.0 Tobacco use
CPT/HCPCS: 96365; J0256

== ENCOUNTER 2017-07-10 12:53 | Outpatient (CLI) | payer OTHER ==
[~2017-07-10] VITALS: Ht 172.7 cm; Wt 112.7 kg
[2017-07-10] MEDS ORDERED: DILUENT IV ONE (13:30)
[2017-07-10] MEDS ORDERED: ALPHA PROTEINASE INHIBITOR IV ONE (13:30)
== END 2017-07-10 14:05 | disposition home or self-care (01) ==
LOC: M INFU 12:53
PROVIDERS: ATTEND Hospitalist
DX: E88.01 Alpha-1-antitrypsin deficiency (principal); J43.1 Panlobular emphysema; Z88.5 Allergy status to narcotic agent; Z91.041 Radiographic dye allergy status; Z88.8 Allergy status to other drugs, medicaments and biological substances; Z79.01 Long term (current) use of anticoagulants; Z79.84 Long term (current) use of oral hypoglycemic drugs; Z79.899 Other long term (current) drug therapy; Z72.0 Tobacco use
CPT/HCPCS: 96365; J0256

== ENCOUNTER 2017-07-24 12:46 | Outpatient (CLI) | payer OTHER ==
[2017-07-24] MEDS ORDERED: ALPHA PROTEINASE INHIBITOR IV ONE (13:00)
[2017-07-24] MEDS ORDERED: DILUENT IV ONE (13:00)
== END 2017-07-24 14:15 | disposition home or self-care (01) ==
LOC: M INFU 12:46
PROVIDERS: ATTEND Internal Medicine
DX: E88.01 Alpha-1-antitrypsin deficiency (principal); J43.0 Unilateral pulmonary emphysema [MacLeod's syndrome]; Z88.8 Allergy status to other drugs, medicaments and biological substances; Z88.5 Allergy status to narcotic agent; Z91.041 Radiographic dye allergy status; Z79.01 Long term (current) use of anticoagulants; Z79.84 Long term (current) use of oral hypoglycemic drugs; Z79.899 Other long term (current) drug therapy; Z72.0 Tobacco use
CPT/HCPCS: 96365; J0256

== ENCOUNTER 2017-07-31 12:59 | Outpatient (CLI) | payer OTHER ==
[~2017-07-31] VITALS: Ht 172.7 cm; Wt 112.7 kg
[2017-07-31] MEDS ORDERED: DILUENT IV ONE (13:00)
[2017-07-31] MEDS ORDERED: ALPHA PROTEINASE INHIBITOR IV ONE (13:00)
== END 2017-07-31 14:00 | disposition home or self-care (01) ==
LOC: M INFU 12:59
PROVIDERS: ATTEND Internal Medicine
DX: E88.01 Alpha-1-antitrypsin deficiency (principal); J43.1 Panlobular emphysema; Z72.0 Tobacco use; Z88.8 Allergy status to other drugs, medicaments and biological substances; Z88.5 Allergy status to narcotic agent; Z91.041 Radiographic dye allergy status; Z79.01 Long term (current) use of anticoagulants; Z79.84 Long term (current) use of oral hypoglycemic drugs; Z79.899 Other long term (current) drug therapy
CPT/HCPCS: 96365; J0256

== ENCOUNTER → 2017-08-06 | Outpatient (CLI) | payer OTHER ==
[~2017-08-06] MED LIST changes: +CEFT500T3 PO; +PRED20TA PO
--- NOTE | 2017-08-07 21:43 | SLEEPCENT ---
DATE OF PROCEDURE: 08/06/2017 ORDERED BY: Dr. Rios Nocturnal polysomnography was performed due to concern for the obstructive sleep apnea syndrome in this patient with a history of excessive somnolence and nonrestorative sleep, comorbidities of diabetes, hypertension, paroxysmal atrial fibrillation, deep vein thrombosis (DVT), lupus and nicotine dependence. 7 hours and 21 minutes of data were reviewed. There were 360 minutes of sleep identified. Sleep latency was prolonged at 18 minutes. Rapid eye movement (REM) latency was prolonged at 216 minutes. Indeed, REM sleep was not achieved until interventions were made. Overall sleep efficiency was 82.6%. The patient's electrocardiogram showed a sinus rhythm with an average heart rate of 66 beats per minute. Rate variability was seen surrounding respiratory events. Rate ranged 50 to 80 beats per minute. EEG showed coarsening in background but otherwise normal waveforms for awake and sleep. There were 129 respiratory events identified of 10 seconds in duration or greater for an apnea-hypopnea index of 21.5. The events were obstructive and associated with oxygen desaturations into the 80s. Having clearly established the presence of obstructive sleep apnea syndrome early in the study, testing was stopped shortly before 1 a.m. for the application of pressure therapy. The patient was fit with a Respironics Sari View full face mask of small size. 5 cm of water pressure were applied to the circuit and the lights were extinguished. Throughout the remaining hours of testing, pressure titration was performed to an optimal pressure of 8 cm with which the patient slept through REM without respiratory event or oxygen desaturation. Some limb activity was seen early in the study. This resolved for the most part with the treatment of respiratory events. IMPRESSION: Severe obstructive sleep apnea syndrome (G47.33), apnea-hypopnea index 21.5. RECOMMENDATION: Nightly use of pressure therapy 8 cm of water. Copy To: Dr. Gabriel
== END ==
LOC: M SLEEP 19:39
PROVIDERS: ATTEND Internal Medicine Pulmonary Disease
DX: R40.0 Somnolence (principal)

== ENCOUNTER 2017-08-07 13:00 | Outpatient (CLI) | payer OTHER ==
[~2017-08-07 13:00] MED LIST changes: +ALPHA PROTEINASE INHIBITOR IV ONE; -CEFT500T3 PO; +DILUENT IV ONE; -PRED20TA PO
== END 2017-08-07 14:00 | disposition home or self-care (01) ==
LOC: M INFU 13:00
PROVIDERS: ATTEND Hospitalist
DX: E88.01 Alpha-1-antitrypsin deficiency (principal); J43.1 Panlobular emphysema; Z72.0 Tobacco use; Z88.8 Allergy status to other drugs, medicaments and biological substances; Z88.5 Allergy status to narcotic agent; Z91.041 Radiographic dye allergy status; Z79.01 Long term (current) use of anticoagulants; Z79.84 Long term (current) use of oral hypoglycemic drugs; Z79.899 Other long term (current) drug therapy
CPT/HCPCS: 96365; J0256

== ENCOUNTER 2017-08-14 09:04 | Outpatient (CLI) | payer OTHER ==
[~2017-08-14] VITALS: Ht 172.7 cm; Wt 112.7 kg
[~2017-08-14 09:04] MED LIST changes: -ALPHA PROTEINASE INHIBITOR IV ONE; -DILUENT IV ONE
[2017-08-14] MEDS: ALPHA PROTEINASE INHIBITOR IV ONE (09:49)
[2017-08-14] MEDS: DILUENT IV ONE (09:49)
== END 2017-08-14 10:25 | disposition home or self-care (01) ==
LOC: M INFU 09:04
PROVIDERS: ATTEND Internal Medicine
DX: E88.01 Alpha-1-antitrypsin deficiency (principal); J43.1 Panlobular emphysema; Z88.8 Allergy status to other drugs, medicaments and biological substances; Z88.5 Allergy status to narcotic agent; Z91.041 Radiographic dye allergy status; Z79.01 Long term (current) use of anticoagulants; Z79.84 Long term (current) use of oral hypoglycemic drugs; Z79.899 Other long term (current) drug therapy; Z72.0 Tobacco use
CPT/HCPCS: 96365; J0256

== ENCOUNTER 2017-08-21 13:04 | Outpatient (CLI) | payer OTHER ==
[~2017-08-21] VITALS: Ht 172.7 cm; Wt 112.7 kg
[2017-08-21] MEDS ORDERED: ALPHA PROTEINASE INHIBITOR IV ONE (14:00)
[2017-08-21] MEDS ORDERED: DILUENT IV ONE (14:00)
== END 2017-08-21 14:25 | disposition home or self-care (01) ==
LOC: M INFU 13:04
PROVIDERS: ATTEND Internal Medicine
DX: E88.01 Alpha-1-antitrypsin deficiency (principal); J43.1 Panlobular emphysema; R07.89 Other chest pain; E11.9 Type 2 diabetes mellitus without complications; M32.9 Systemic lupus erythematosus, unspecified; F17.210 Nicotine dependence, cigarettes, uncomplicated; Z87.442 Personal history of urinary calculi; Z79.84 Long term (current) use of oral hypoglycemic drugs; Z79.01 Long term (current) use of anticoagulants; Z79.899 Other long term (current) drug therapy; Z91.041 Radiographic dye allergy status; Z88.5 Allergy status to narcotic agent; Z88.8 Allergy status to other drugs, medicaments and biological substances; Z30.9 Encounter for contraceptive management, unspecified
CPT/HCPCS: 96365; J0256

== ENCOUNTER 2017-09-11 08:14 | Outpatient (CLI) | payer OTHER ==
[~2017-09-11] VITALS: Ht 172.7 cm; Wt 112.7 kg
[~2017-09-11 08:14] MED LIST changes: -CEFT500T3 PO; -PRED20TA PO
[2017-09-11] MEDS ORDERED: PRED20TA PO (08:52)
[2017-09-11] MEDS ORDERED: CEFT500T3 PO (08:52)
[2017-09-11] MEDS ORDERED: DILUENT IV ONE (09:00)
[2017-09-11] MEDS ORDERED: ALPHA PROTEINASE INHIBITOR IV ONE (09:00)
== END 2017-09-11 10:10 | disposition home or self-care (01) ==
LOC: M INFU 08:14
PROVIDERS: ATTEND General Practice
DX: E88.01 Alpha-1-antitrypsin deficiency (principal); J43.1 Panlobular emphysema; Z88.8 Allergy status to other drugs, medicaments and biological substances; Z91.041 Radiographic dye allergy status; Z88.5 Allergy status to narcotic agent; Z72.0 Tobacco use; Z79.01 Long term (current) use of anticoagulants; Z79.899 Other long term (current) drug therapy
CPT/HCPCS: 96365; J0256

== ENCOUNTER → 2017-09-11 | Outpatient (CLI) | payer OTHER ==
[~2017-09-11] MED LIST changes: +CEFT500T3 PO; +PRED20TA PO
[2017-09-11 08:50] LABS: INR 3.25
== END ==
LOC: M LAB 08:12
PROVIDERS: ATTEND Family Medicine
DX: I82.402 Acute embolism and thrombosis of unspecified deep veins of left lower extremity (principal)

== ENCOUNTER 2017-09-19 11:27 | Outpatient (CLI) | payer OTHER ==
[~2017-09-19 11:27] MED LIST changes: +CEFT500T3 PO; +PRED20TA PO
[2017-09-19] MEDS ORDERED: ALPHA PROTEINASE INHIBITOR IV ONE (12:00)
[2017-09-19] MEDS ORDERED: DILUENT IV ONE (12:00)
== END 2017-09-19 13:00 | disposition home or self-care (01) ==
LOC: M INFU 11:27
PROVIDERS: ATTEND Internal Medicine
DX: E88.01 Alpha-1-antitrypsin deficiency (principal); J43.1 Panlobular emphysema; Z88.8 Allergy status to other drugs, medicaments and biological substances; Z91.041 Radiographic dye allergy status; Z88.5 Allergy status to narcotic agent; Z79.01 Long term (current) use of anticoagulants; Z79.84 Long term (current) use of oral hypoglycemic drugs; Z79.899 Other long term (current) drug therapy
CPT/HCPCS: 96365; J0256

== ENCOUNTER → 2017-09-22 | Outpatient (REF) | payer OTHER | LOC: M SFHCLERA 15:12 | PROVIDERS: ATTEND Nurse Practitioner Family | DX: J35.8 Other chronic diseases of tonsils and adenoids (principal) ==

== ENCOUNTER → 2017-09-22 | Outpatient (CLI) | payer OTHER ==
--- NOTE | 2017-09-22 15:11 | REP ---
Clinical: Shortness of breath . Comparison: 09/01/2017 . Technique: PA and lateral. Findings: The mediastinum and cardiac silhouette are normal. The lung ann demonstrate chronic changes without acute consolidation, effusion, or pneumothorax. The skeletal structures are intact and normal. Impression: 1. No acute cardiopulmonary process. Signed by Diego De MD 09/22/2017 03:03 P
== END ==
LOC: M LRY 14:51
PROVIDERS: ATTEND Nurse Practitioner Family
DX: R06.02 Shortness of breath (principal)

== ENCOUNTER 2017-09-25 11:30 | Outpatient (CLI) | payer OTHER ==
[~2017-09-25] VITALS: Ht 172.7 cm; Wt 117.3 kg
[~2017-09-25 11:30] MED LIST changes: -HYDR5SYP11 PO; -VENTAER IN; -ZITHTAB PO
[2017-09-25] MEDS ORDERED: ALPHA PROTEINASE INHIBITOR IV ONE (12:00)
[2017-09-25] MEDS ORDERED: DILUENT IV ONE (12:00)
== END 2017-09-25 12:40 | disposition home or self-care (01) ==
LOC: M INFU 11:30
PROVIDERS: ATTEND Internal Medicine
DX: E88.01 Alpha-1-antitrypsin deficiency (principal); J43.1 Panlobular emphysema; Z88.8 Allergy status to other drugs, medicaments and biological substances; Z88.5 Allergy status to narcotic agent; Z91.041 Radiographic dye allergy status; Z79.01 Long term (current) use of anticoagulants; Z79.84 Long term (current) use of oral hypoglycemic drugs; Z79.899 Other long term (current) drug therapy; Z72.0 Tobacco use
CPT/HCPCS: 96365; J0256

== ENCOUNTER → 2017-09-25 | Outpatient (REF) | payer OTHER ==
[~2017-09-25] MED LIST changes: +HYDR5SYP11 PO; +VENTAER IN; +ZITHTAB PO
[2017-09-25 17:24] LABS: INR 1.91
== END ==
LOC: M SFHCLERA 13:53
PROVIDERS: ATTEND Family Medicine
DX: Z51.81 Encounter for therapeutic drug level monitoring (principal); Z79.01 Long term (current) use of anticoagulants

== ENCOUNTER 2017-09-30 10:04 | Emergency (ER) | payer OTHER ==
[~2017-09-30] VITALS: Ht 172.7 cm; Wt 105.5 kg
[2017-09-30] MEDS ORDERED: VENTAER IN (10:29)
[2017-09-30] MEDS ORDERED: IPRATROPIUM 0.5MG/ALBUTEROL 2.5MG INH SOL UD 3ML (DUONEB)(J7620) NEB ONE (11:00)
[2017-09-30 11:17] LABS: BASO % 0.4 % (0.0-1.0); EOS # 0.2 10^3/uL (0.0-0.50); EOS % 2.5 % (0.0-3.0); IMMATURE GRANULOCYTE % 0.6 % (0-0); LYMPH # 1.2 10^3/uL (1.5-4.5); LYMPH % 14.3 % (24.0-44.0); MEAN CORPUSCULAR HEMOGLOBIN 30.8 pg (27.0-33.0); MEAN CORPUSCULAR HGB CONC 34.5 g/dl (32.0-36.5); MEAN CORPUSCULAR VOLUME 89.5 fl (80.0-96.0); MONO # 0.7 10^3/uL (0.0-0.8); NEUTROPHILS # 6.1 10^3/uL (1.8-7.7); NEUTROPHILS % 74.2 % (36.0-66.0); PLATELET COUNT, AUTOMATED 151 10^3/uL (150-450); RED CELL DISTRIBUTION WIDTH 12.8 % (11.5-14.5); WHITE BLOOD COUNT 8.2 10^3/uL (4.0-10.0)
--- NOTE | 2017-09-30 11:18 | REP ---
Chest two views HISTORY: Cough Comparison: 09/22/2017 The lungs are clear. The heart is normal in size. The pulmonary vasculature is normal in appearance. The bony structure is intact. IMPRESSION: No acute disease. Signed by Ascencion Garrido MD 09/30/2017 11:10 A
[2017-09-30 11:44] LABS: INR 2.18
[2017-09-30 11:47] LABS: ANION GAP 6 MEQ/L (8-16); BLOOD UREA NITROGEN 19 MG/DL (7-18); CALCIUM LEVEL 8.8 MG/DL (8.5-10.1); CARBON DIOXIDE LEVEL 27 MEQ/L (21-32); CHLORIDE LEVEL 104 MEQ/L (98-107); CREATININE FOR GFR 1.07 MG/DL (0.70-1.30); GLOMERULAR FILTRATION RATE > 60.0 (>56); GLUCOSE, FASTING 231 MG/DL (70-105); POTASSIUM SERUM 4.1 MEQ/L (3.5-5.1); SODIUM LEVEL 137 MEQ/L (136-145)
[2017-09-30] MEDS ORDERED: ZITHTAB PO (12:26)
[2017-09-30] MEDS ORDERED: HYDR5SYP11 PO (12:28)
[2017-09-30] MEDS ORDERED: AZITHROMYCIN 250 MG TAB PO ONE (12:30)
[2017-09-30 12:32] VITALS: BP 151/78
== END 2017-09-30 12:41 | disposition home or self-care (01) ==
LOC: M ED 10:04
DX: J20.9 Acute bronchitis, unspecified (principal); J06.9 Acute upper respiratory infection, unspecified; I10 Essential (primary) hypertension; Z86.718 Personal history of other venous thrombosis and embolism; I48.91 Unspecified atrial fibrillation; E11.9 Type 2 diabetes mellitus without complications; F17.200 Nicotine dependence, unspecified, uncomplicated; Z79.84 Long term (current) use of oral hypoglycemic drugs; Z79.899 Other long term (current) drug therapy; Z88.6 Allergy status to analgesic agent; Z88.5 Allergy status to narcotic agent; Z91.041 Radiographic dye allergy status

== ENCOUNTER 2017-10-02 09:22 | Outpatient (CLI) | payer OTHER ==
[2017-10-02] MEDS ORDERED: DILUENT IV ONE (09:30)
[2017-10-02] MEDS ORDERED: ALPHA PROTEINASE INHIBITOR IV ONE (09:30)
== END 2017-10-02 10:35 | disposition home or self-care (01) ==
LOC: M INFU 09:22
PROVIDERS: ATTEND Internal Medicine
DX: E88.01 Alpha-1-antitrypsin deficiency (principal); J43.1 Panlobular emphysema; F17.210 Nicotine dependence, cigarettes, uncomplicated; Z88.8 Allergy status to other drugs, medicaments and biological substances; Z91.041 Radiographic dye allergy status; Z88.5 Allergy status to narcotic agent; Z79.01 Long term (current) use of anticoagulants; Z79.84 Long term (current) use of oral hypoglycemic drugs; Z79.899 Other long term (current) drug therapy
CPT/HCPCS: 96365; J0256

== ENCOUNTER → 2017-10-02 | Outpatient (REF) | payer OTHER ==
[~2017-10-02] MED LIST changes: +HYDR5SYP11 PO; +VENTAER IN; +ZITHTAB PO
[2017-10-02 21:02] LABS: INR 1.88
== END ==
LOC: M SFHCLERA 15:08
PROVIDERS: ATTEND Family Medicine
DX: Z51.81 Encounter for therapeutic drug level monitoring (principal); Z79.01 Long term (current) use of anticoagulants

== ENCOUNTER → 2017-10-04 | Outpatient (REF) | payer OTHER ==
[2017-10-04 16:28] LABS: BASO # 0.1 10^3/uL (0.0-0.2); BASO % 0.6 % (0.0-1.0); EOS # 0.2 10^3/uL (0.0-0.50); EOS % 2.8 % (0.0-3.0); IMMATURE GRANULOCYTE % 0.4 % (0-0); LYMPH # 1.8 10^3/uL (1.5-4.5); LYMPH % 22.2 % (24.0-44.0); MEAN CORPUSCULAR HEMOGLOBIN 30.9 pg (27.0-33.0); MEAN CORPUSCULAR HGB CONC 34.1 g/dl (32.0-36.5); MEAN CORPUSCULAR VOLUME 90.6 fl (80.0-96.0); MONO # 0.5 10^3/uL (0.0-0.8); MONO % 5.4 % (0.0-5.0); NEUTROPHILS # 5.7 10^3/uL (1.8-7.7); NEUTROPHILS % 68.6 % (36.0-66.0); PLATELET COUNT, AUTOMATED 142 10^3/uL (150-450); RED CELL DISTRIBUTION WIDTH 12.9 % (11.5-14.5); WHITE BLOOD COUNT 8.3 10^3/uL (4.0-10.0)
[2017-10-04 16:38] LABS: INR 1.81
[2017-10-04 16:47] LABS: ANION GAP 8 MEQ/L (8-16); BLOOD UREA NITROGEN 11 MG/DL (7-18); CALCIUM LEVEL 8.2 MG/DL (8.5-10.1); CARBON DIOXIDE LEVEL 26 MEQ/L (21-32); CHLORIDE LEVEL 105 MEQ/L (98-107); CREATININE FOR GFR 0.94 MG/DL (0.70-1.30); GLOMERULAR FILTRATION RATE > 60.0 (>56); GLUCOSE, FASTING 266 MG/DL (70-105); SODIUM LEVEL 139 MEQ/L (136-145)
== END ==
LOC: M SFHCLERA 10:02
PROVIDERS: ATTEND Family Medicine
DX: J20.9 Acute bronchitis, unspecified (principal); Z79.01 Long term (current) use of anticoagulants

== ENCOUNTER → 2017-10-04 | Outpatient (CLI) | payer OTHER ==
--- NOTE | 2017-10-11 15:16 | REP ---
PA and lateral chest: Comparison is 09/30/2017. The lung ann are clear. The cardiac size is normal The kanchan, mediastinum, and bony thorax are unremarkable. Impression: Negative PA and lateral chest. There is no interval change. Signed by Nick Ocampo MD 10/11/2017 03:07 P
== END ==
LOC: M LRY 10:40
PROVIDERS: ATTEND Family Medicine
DX: J20.9 Acute bronchitis, unspecified (principal)

== ENCOUNTER → 2017-10-08 | Outpatient (CLI) | payer OTHER ==
--- NOTE | 2017-10-08 12:31 | REP ---
Left lower extremity deep vein duplex ultrasound: Comparisons are 12/02/2015 and 03/02/2020 16. The the deep veins demonstrate normal compression, normal Doppler color flow and normal Doppler waveforms with respiration augmentation at multiple levels from the popliteal vein to the common femoral vein. There is persisting shallow nonocclusive thrombus along the berry of the popliteal vein and distal femoral vein, unchanged from the comparison studies. This is consistent with chronic organized nonocclusive thrombus. Impression: Chronic nonocclusive thrombus in the popliteal vein and distal femoral vein. This is similar to the comparison studies. No new occlusive thrombus is identified. Signed by Nick Oacmpo MD 10/08/2017 12:22 P
== END ==
LOC: M RAD 09:23
PROVIDERS: ATTEND Family Medicine
DX: I82.512 Chronic embolism and thrombosis of left femoral vein (principal)

== ENCOUNTER 2017-10-11 15:36 | Outpatient (CLI) | payer OTHER ==
[~2017-10-11] VITALS: Ht 172.7 cm; Wt 117.3 kg
[2017-10-11] MEDS ORDERED: DILUENT IV ONE (16:00)
[2017-10-11] MEDS ORDERED: ALPHA PROTEINASE INHIBITOR IV ONE (16:00)
== END 2017-10-11 16:45 | disposition home or self-care (01) ==
LOC: M INFU 15:36
PROVIDERS: ATTEND Internal Medicine
DX: E88.01 Alpha-1-antitrypsin deficiency (principal); J43.1 Panlobular emphysema; Z72.0 Tobacco use; Z88.8 Allergy status to other drugs, medicaments and biological substances; Z91.041 Radiographic dye allergy status; Z88.5 Allergy status to narcotic agent
CPT/HCPCS: 96365; J0256

== ENCOUNTER → 2017-10-11 | Outpatient (CLI) | payer OTHER ==
[2017-10-11 16:03] LABS: BASO # 0.1 10^3/uL (0.0-0.2); BASO % 0.7 % (0.0-1.0); EOS # 0.3 10^3/uL (0.0-0.50); EOS % 3.8 % (0.0-3.0); IMMATURE GRANULOCYTE % 0.3 % (0-0); LYMPH % 27.7 % (24.0-44.0); MEAN CORPUSCULAR HEMOGLOBIN 30.2 pg (27.0-33.0); MEAN CORPUSCULAR HGB CONC 33.8 g/dl (32.0-36.5); MEAN CORPUSCULAR VOLUME 89.4 fl (80.0-96.0); MONO # 0.5 10^3/uL (0.0-0.8); MONO % 7.3 % (0.0-5.0); NEUTROPHILS # 4.4 10^3/uL (1.8-7.7); NEUTROPHILS % 60.2 % (36.0-66.0); PLATELET COUNT, AUTOMATED 166 10^3/uL (150-450); RED CELL DISTRIBUTION WIDTH 13.1 % (11.5-14.5); WHITE BLOOD COUNT 7.3 10^3/uL (4.0-10.0)
[2017-10-11 16:16] LABS: INR 1.59
== END ==
LOC: M LAB 15:34
PROVIDERS: ATTEND Family Medicine
DX: I82.402 Acute embolism and thrombosis of unspecified deep veins of left lower extremity (principal); J42 Unspecified chronic bronchitis

== ENCOUNTER → 2017-10-11 | Outpatient (CLI) | payer OTHER ==
--- NOTE | 2017-10-12 07:12 | REP ---
PA and lateral chest: Comparison is 10/04/2017. The lung ann are clear. The cardiac size is normal The kanchan, mediastinum, and bony thorax are unremarkable. Impression: Negative PA and lateral chest. There is no interval change. Signed by Nick Ocampo MD 10/11/2017 03:06 P
== END ==
LOC: M LRY 14:51
PROVIDERS: ATTEND Family Medicine
DX: J42 Unspecified chronic bronchitis (principal)

== ENCOUNTER 2017-10-17 15:57 | Outpatient (CLI) | payer OTHER ==
[~2017-10-17] VITALS: Ht 172.7 cm; Wt 117.0 kg
[2017-10-17] MEDS ORDERED: DILUENT IV ONE (16:00)
[2017-10-17] MEDS ORDERED: ALPHA PROTEINASE INHIBITOR IV ONE (16:00)
== END 2017-10-17 17:00 | disposition home or self-care (01) ==
LOC: M INFU 15:57
PROVIDERS: ATTEND Internal Medicine
DX: E88.01 Alpha-1-antitrypsin deficiency (principal); J43.1 Panlobular emphysema; I10 Essential (primary) hypertension; E11.9 Type 2 diabetes mellitus without complications; M32.9 Systemic lupus erythematosus, unspecified; I49.9 Cardiac arrhythmia, unspecified; R07.9 Chest pain, unspecified; G47.00 Insomnia, unspecified; F32.9 Major depressive disorder, single episode, unspecified; F17.210 Nicotine dependence, cigarettes, uncomplicated; Z87.442 Personal history of urinary calculi; Z79.899 Other long term (current) drug therapy; Z79.84 Long term (current) use of oral hypoglycemic drugs; J30.9 Allergic rhinitis, unspecified; Z91.041 Radiographic dye allergy status; Z88.5 Allergy status to narcotic agent; Z88.8 Allergy status to other drugs, medicaments and biological substances; Z86.718 Personal history of other venous thrombosis and embolism
CPT/HCPCS: 96365; J0256

== ENCOUNTER 2017-10-24 09:40 | Outpatient (CLI) | payer OTHER ==
[2017-10-24] MEDS: ALPHA PROTEINASE INHIBITOR IV (10:41)
[2017-10-24] MEDS: DILUENT IV (10:41)
== END 2017-10-24 11:20 | disposition home or self-care (01) ==
LOC: M INFU 09:40
DX: E88.01 Alpha-1-antitrypsin deficiency (principal); J43.1 Panlobular emphysema; Z72.0 Tobacco use; Z88.8 Allergy status to other drugs, medicaments and biological substances; Z91.041 Radiographic dye allergy status; Z88.5 Allergy status to narcotic agent; Z79.01 Long term (current) use of anticoagulants; Z79.899 Other long term (current) drug therapy
CPT/HCPCS: 96365

== ENCOUNTER 2017-10-30 12:50 | Outpatient (CLI) | payer OTHER ==
[2017-10-30] MEDS ORDERED: ALPHA PROTEINASE INHIBITOR IV (13:00)
[2017-10-30] MEDS ORDERED: DILUENT IV (13:00)
[2017-10-30] MEDS: ALPHA PROTEINASE INHIBITOR IV (13:45)
[2017-10-30] MEDS: DILUENT IV (13:45)
== END 2017-10-30 14:25 | disposition home or self-care (01) ==
LOC: M INFU 12:50
DX: E88.01 Alpha-1-antitrypsin deficiency (principal)
CPT/HCPCS: 96365

== ENCOUNTER → 2017-11-05 | Outpatient (REF) | payer OTHER ==
[2017-11-05 13:54] LABS: ESTIMATED AVERAGE GLUCOSE 157 MG/DL (60-110); HEMOGLOBIN A1c 7.1 %
== END ==
LOC: M SFHCLERA 08:28
DX: E11.9 Type 2 diabetes mellitus without complications (principal)
CPT/HCPCS: 83036

== ENCOUNTER 2017-11-13 10:16 | Outpatient (CLI) | payer OTHER ==
[2017-11-13] MEDS: DILUENT IV (11:14)
[2017-11-13] MEDS: ALPHA PROTEINASE INHIBITOR IV (11:14)
== END 2017-11-13 11:50 | disposition home or self-care (01) ==
LOC: M INFU 10:16
DX: E88.01 Alpha-1-antitrypsin deficiency (principal); J43.1 Panlobular emphysema; Z88.8 Allergy status to other drugs, medicaments and biological substances; Z91.041 Radiographic dye allergy status; Z88.5 Allergy status to narcotic agent; Z79.01 Long term (current) use of anticoagulants; Z79.899 Other long term (current) drug therapy
CPT/HCPCS: 96365

== ENCOUNTER 2017-11-20 11:54 | Outpatient (CLI) | payer OTHER ==
[2017-11-20] MEDS: DILUENT IV (12:34)
[2017-11-20] MEDS: ALPHA PROTEINASE INHIBITOR IV (12:34)
== END 2017-11-20 13:15 | disposition home or self-care (01) ==
LOC: M INFU 11:54
DX: E88.01 Alpha-1-antitrypsin deficiency (principal); J43.1 Panlobular emphysema; Z88.8 Allergy status to other drugs, medicaments and biological substances; Z91.041 Radiographic dye allergy status; Z88.5 Allergy status to narcotic agent; Z79.01 Long term (current) use of anticoagulants; Z79.899 Other long term (current) drug therapy
CPT/HCPCS: 96365

== ENCOUNTER 2017-11-27 09:59 | Outpatient (CLI) | payer OTHER ==
[2017-11-27] MEDS: DILUENT IV (10:19)
[2017-11-27] MEDS: ALPHA PROTEINASE INHIBITOR IV (10:19)
== END 2017-11-27 11:00 | disposition home or self-care (01) ==
LOC: M INFU 09:59
DX: E88.01 Alpha-1-antitrypsin deficiency (principal); J43.1 Panlobular emphysema; Z88.8 Allergy status to other drugs, medicaments and biological substances; Z91.041 Radiographic dye allergy status; Z88.5 Allergy status to narcotic agent; Z79.01 Long term (current) use of anticoagulants; Z79.899 Other long term (current) drug therapy
CPT/HCPCS: 96365

== ENCOUNTER → 2018-01-31 | Outpatient (REF) | payer OTHER ==
[2018-01-31 17:25] LABS: ESTIMATED AVERAGE GLUCOSE 163 MG/DL (60-110); HEMOGLOBIN A1c 7.3 %
== END ==
LOC: M SFHCLERA 14:08
DX: E11.8 Type 2 diabetes mellitus with unspecified complications (principal)
CPT/HCPCS: 83036

== ENCOUNTER → 2018-05-06 | Outpatient (REF) | payer OTHER ==
[2018-05-06 11:56] LABS: BASO # 0.1 10^3/uL (0.0-0.2); BASO % 0.7 % (0.0-1.0); EOS # 0.6 10^3/uL (0.0-0.50); EOS % 7.1 % (0.0-3.0); HEMATOCRIT 43.7 % (42.0-52.0); IMMATURE GRANULOCYTE % 0.2 % (0-3.0); LYMPH # 1.3 10^3/uL (1.5-4.5); MEAN CORPUSCULAR HEMOGLOBIN 30.7 pg (27.0-33.0); MEAN CORPUSCULAR HGB CONC 34.3 g/dl (32.0-36.5); MEAN CORPUSCULAR VOLUME 89.4 fl (80.0-96.0); MONO # 0.4 10^3/uL (0.0-0.8); MONO % 4.5 % (0.0-5.0); NEUTROPHILS # 6.3 10^3/uL (1.8-7.7); NEUTROPHILS % 72.5 % (36.0-66.0); PLATELET COUNT, AUTOMATED 159 10^3/uL (150-450); RED BLOOD COUNT 4.89 10^6/uL (4.30-6.10); WHITE BLOOD COUNT 8.6 10^3/uL (4.0-10.0)
[2018-05-06 12:38] LABS: CREATININE, URINE 35.6 MG/DL; MALB URINE SIEMENS < 5.0 MG/L
[2018-05-06 12:55] LABS: ALBUMIN 3.7 GM/DL (3.2-5.2); ALBUMIN/GLOBULIN RATIO 1.23 (1.00-1.93); ALKALINE PHOSPHATASE 120 U/L (45-117); ALT/SGPT 23 U/L (12-78); ANION GAP 7 MEQ/L (8-16); AST/SGOT 10 U/L (7-37); BILIRUBIN,TOTAL 0.3 MG/DL (0.2-1.0); BLOOD UREA NITROGEN 13 MG/DL (7-18); CALCIUM LEVEL 8.3 MG/DL (8.5-10.1); CARBON DIOXIDE LEVEL 28 MEQ/L (21-32); CHLORIDE LEVEL 106 MEQ/L (98-107); CHOLESTEROL LEVEL 128 MG/DL (<200); CHOLESTEROL RISK RATIO 3.368 (<5); CREATININE FOR GFR 0.99 MG/DL (0.70-1.30); GLOMERULAR FILTRATION RATE > 60.0 (>56); GLUCOSE, FASTING 311 MG/DL (70-100); HDL CHOLESTEROL 38 MG/DL (>40); LDL CHOLESTEROL 49.2 MG/DL (<100); NON-HDL-C 90 MG/DL; SODIUM LEVEL 141 MEQ/L (136-145); THYROID STIMULATING HORMONE 0.584 uIU/ML (0.358-3.740); TOTAL PROTEIN 6.7 GM/DL (6.4-8.2); TRIGLYCERIDES LEVEL 204 MG/DL (<150)
[2018-05-06 13:58] LABS: ESTIMATED AVERAGE GLUCOSE 177 MG/DL (60-110); HEMOGLOBIN A1c 7.8 %
== END ==
LOC: M SFHCLERA 09:07
DX: E11.9 Type 2 diabetes mellitus without complications (principal); Z79.01 Long term (current) use of anticoagulants

== ENCOUNTER 2018-06-23 08:36 | Emergency (ER) | payer MEDICARE, BC, OTHER ==
[2018-06-23 09:54] LABS: BASO # 0.1 10^3/uL (0.0-0.2); BASO % 0.7 % (0.0-1.0); EOS # 0.6 10^3/uL (0.0-0.50); EOS % 7.1 % (0.0-3.0); HEMATOCRIT 45.9 % (42.0-52.0); HEMOGLOBIN 15.6 g/dl (13.5-17.5); IMMATURE GRANULOCYTE % 0.5 % (0-3.0); LYMPH # 1.4 10^3/uL (1.5-4.5); LYMPH % 16.4 % (24.0-44.0); MEAN CORPUSCULAR VOLUME 91.1 fl (80.0-96.0); MONO # 0.3 10^3/uL (0.0-0.8); MONO % 3.9 % (0.0-5.0); NEUTROPHILS # 5.9 10^3/uL (1.8-7.7); NEUTROPHILS % 71.4 % (36.0-66.0); PLATELET COUNT, AUTOMATED 151 10^3/uL (150-450); RED BLOOD COUNT 5.04 10^6/uL (4.30-6.10); RED CELL DISTRIBUTION WIDTH 12.5 % (11.5-14.5); WHITE BLOOD COUNT 8.3 10^3/uL (4.0-10.0)
[2018-06-23 10:02] LABS: ANION GAP 5 MEQ/L (8-16); BLOOD UREA NITROGEN 15 MG/DL (7-18); CARBON DIOXIDE LEVEL 28 MEQ/L (21-32); CHLORIDE LEVEL 106 MEQ/L (98-107); CREATININE FOR GFR 1.09 MG/DL (0.70-1.30); GLOMERULAR FILTRATION RATE > 60.0 (>56); GLUCOSE, FASTING 288 MG/DL (70-100); POTASSIUM SERUM 3.9 MEQ/L (3.5-5.1); SODIUM LEVEL 139 MEQ/L (136-145)
[2018-06-23] MEDS: KETOROLAC 30 MG/ML VIAL (J1885) IV (10:06)
[2018-06-23] MEDS: METOCLOPRAMIDE INJ 10MG/2ML VIAL (J2765) IV (10:06)
[2018-06-23 10:08] LABS: INR 2.26; PROTHROMBIN TIME 25.4 SECONDS (12.1-14.4)
[2018-06-23 10:29] LABS: ERYTHROCYTE SEDIMENTATION RATE 1 mm/hr (0-20)
[2018-06-23] MEDS: LORazepam 2 MG/ML VIAL (J2060) IV (11:35)
[2018-06-23] MEDS: predniSONE 20 MG TAB PO (13:30)
== END 2018-06-23 14:07 | disposition home or self-care (01) ==
LOC: M ED 08:36
DX: G51.0 Bell's palsy (principal); I67.81 Acute cerebrovascular insufficiency; I48.91 Unspecified atrial fibrillation; E11.9 Type 2 diabetes mellitus without complications; I10 Essential (primary) hypertension; F17.210 Nicotine dependence, cigarettes, uncomplicated; Z82.3 Family history of stroke; Z82.49 Family history of ischemic heart disease and other diseases of the circulatory system; Z88.8 Allergy status to other drugs, medicaments and biological substances; Z91.041 Radiographic dye allergy status; Z88.5 Allergy status to narcotic agent; Z79.01 Long term (current) use of anticoagulants; Z79.899 Other long term (current) drug therapy
CPT/HCPCS: J1885

== ENCOUNTER → 2018-08-13 | Outpatient (REF) | payer BC ==
[2018-08-13 18:04] LABS: ANION GAP 5 MEQ/L (8-16); BLOOD UREA NITROGEN 14 MG/DL (7-18); CALCIUM LEVEL 8.8 MG/DL (8.5-10.1); CARBON DIOXIDE LEVEL 29 MEQ/L (21-32); CHLORIDE LEVEL 106 MEQ/L (98-107); CREATININE FOR GFR 1.03 MG/DL (0.70-1.30); GLOMERULAR FILTRATION RATE > 60.0 (>56); GLUCOSE, FASTING 158 MG/DL (70-100); MAGNESIUM LEVEL 2.2 MG/DL (1.8-2.4); POTASSIUM SERUM 4.5 MEQ/L (3.5-5.1); SODIUM LEVEL 140 MEQ/L (136-145)
[2018-08-13 19:06] LABS: ESTIMATED AVERAGE GLUCOSE 148 MG/DL (60-110); HEMOGLOBIN A1c 6.8 %
== END ==
LOC: M SFHCLERA 12:04
DX: E11.8 Type 2 diabetes mellitus with unspecified complications (principal)

== ENCOUNTER → 2018-11-26 | Outpatient (REF) | payer BC ==
[~2018-11-26] MED LIST changes: +DILT1CAP46; +FLEC50HA PO; -FLEC50TA PO; +LISI2.5T5; +PROT1TAB2 PO; +TRAM50TA2
[2018-11-26 16:52] LABS: INR 2.58; PROTHROMBIN TIME 28.2 SECONDS (12.1-14.4)
== END ==
LOC: M SFHCLERA 10:52
PROVIDERS: ATTEND Family Medicine
DX: Z79.01 Long term (current) use of anticoagulants (principal)

== ENCOUNTER 2018-12-29 14:01 | Emergency (ER) | payer BC, MEDICARE ==
[~2018-12-29] VITALS: Ht 172.7 cm; Wt 94.1 kg
[2018-12-29] MEDS ORDERED: CETI10TA PO (14:14)
[2018-12-29] MEDS ORDERED: ROPI0.5T (14:14)
[2018-12-29 14:34] LABS: BASO # 0.1 10^3/uL (0.0-0.2); EOS # 0.8 10^3/uL (0.0-0.50); EOS % 9.5 % (0.0-3.0); HEMATOCRIT 43.1 % (42.0-52.0); HEMOGLOBIN 15.1 g/dl (13.5-17.5); LYMPH # 1.6 10^3/uL (1.5-4.5); MEAN CORPUSCULAR HEMOGLOBIN 31.7 pg (27.0-33.0); MEAN CORPUSCULAR VOLUME 90.4 fl (80.0-96.0); MONO # 0.4 10^3/uL (0.0-0.8); NEUTROPHILS # 5.1 10^3/uL (1.8-7.7); NEUTROPHILS % 64.1 % (36.0-66.0); PLATELET COUNT, AUTOMATED 138 10^3/uL (150-450); RED BLOOD COUNT 4.77 10^6/uL (4.30-6.10)
[2018-12-29 14:56] LABS: INR 1.25; PROTHROMBIN TIME 15.9 SECONDS (12.1-14.4)
--- NOTE | 2018-12-29 15:16 | REP ---
Clinical: Chest pain . Comparison: 10/11/2017 . Findings: The mediastinum and cardiac silhouette are stable and within normal limits for portable technique. The lung ann are clear without acute consolidation, effusion, or pneumothorax. Skeletal structures are intact. Impression: No acute cardiopulmonary process appreciated. Electronically Signed by Diego De MD 12/29/2018 03:07 P
[2018-12-29 15:24] LABS: ALBUMIN 3.5 GM/DL (3.2-5.2); ALT/SGPT 19 U/L (12-78); BILIRUBIN,DIRECT < 0.1 MG/DL (0.0-0.2); BILIRUBIN,TOTAL 0.2 MG/DL (0.2-1.0); BLOOD UREA NITROGEN 13 MG/DL (7-18); CARBON DIOXIDE LEVEL 25 MEQ/L (21-32); CHLORIDE LEVEL 107 MEQ/L (98-107); CPK CREATINE PHOSPHOKINASE 80 U/L (39-308); CREATININE FOR GFR 1.05 MG/DL (0.70-1.30); GLOMERULAR FILTRATION RATE > 60.0 (>56); GLUCOSE, FASTING 169 MG/DL (70-100); LIPASE 202 U/L (73-393); NT-PRO BNP 2857 PG/ML (<125); POTASSIUM SERUM 3.6 MEQ/L (3.5-5.1); SODIUM LEVEL 139 MEQ/L (136-145); TOTAL PROTEIN 6.8 GM/DL (6.4-8.2); TROPONIN I 1.02 NG/ML (< 0.10)
[2018-12-29] MEDS ORDERED: ASPIRIN 81 MG CHEW TABLET PO ONE (15:45)
[2018-12-29] MEDS ORDERED: HEPARIN SOD (PORCINE) 5000 UNITS/ML VIAL IV ONE (16:00)
[2018-12-29] MEDS ORDERED: HEPARIN DRIP 25,000 UNITS in APPROPRIATE DILUENT 1 EA IV SCH (16:08)
[2018-12-29 16:45] VITALS: BP 120/79
--- NOTE | 2018-12-29 20:10 | ECGEPIP ---
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
== END 2018-12-29 16:52 | disposition short-term general hospital (02) ==
LOC: M ED 14:01
DX: I24.9 Acute ischemic heart disease, unspecified (principal); E11.9 Type 2 diabetes mellitus without complications; I10 Essential (primary) hypertension; E78.5 Hyperlipidemia, unspecified; I48.91 Unspecified atrial fibrillation; Z82.49 Family history of ischemic heart disease and other diseases of the circulatory system; Z88.5 Allergy status to narcotic agent; Z88.8 Allergy status to other drugs, medicaments and biological substances; Z91.041 Radiographic dye allergy status; F17.210 Nicotine dependence, cigarettes, uncomplicated

== ENCOUNTER → 2019-01-07 | Outpatient (CLI) | payer MEDICARE, BC ==
[~2019-01-07] MED LIST changes: +CETI10TA PO; +ROPI0.5T
--- NOTE | 2019-01-07 11:18 | REP ---
Chest two views HISTORY: cough Comparison: 12/29/2018 The lungs are clear. The heart is normal in size. The pulmonary vasculature is normal in appearance. Degenerative change is present in the thoracic spine. IMPRESSION: No acute disease. Electronically Signed by Ascencion Garrido MD 01/07/2019 11:09 A
== END ==
LOC: M RAD 10:18 → M LAB 10:18
PROVIDERS: ATTEND Nurse Practitioner Family
DX: R05 Cough (principal)

== ENCOUNTER → 2019-04-08 | Outpatient (REF) | payer BC ==
[~2019-04-08] MED LIST changes: -/WARF5TA PO; -ASPI81CH PO; +ASPI81CH49 PO; +COUM1TAB17 PO; +LISI-1046; -LISI2.5T5; +NICO21DI3 EXT; -NICO21PAT EXT
[2019-04-08 18:00] LABS: ALBUMIN 3.7 GM/DL (3.2-5.2); ALT/SGPT 30 U/L (12-78); BILIRUBIN,TOTAL 0.5 MG/DL (0.2-1.0); BLOOD UREA NITROGEN 15 MG/DL (7-18); CALCIUM LEVEL 8.4 MG/DL (8.5-10.1); CARBON DIOXIDE LEVEL 29 MEQ/L (21-32); CHLORIDE LEVEL 108 MEQ/L (98-107); CHOLESTEROL LEVEL 99 MG/DL (<200); CREATININE FOR GFR 0.91 MG/DL (0.70-1.30); GLOMERULAR FILTRATION RATE > 60.0 (>56); GLUCOSE, FASTING 97 MG/DL (70-100); HDL CHOLESTEROL 50 MG/DL (>40); LDL CHOLESTEROL 36 MG/DL (<100); NON-HDL-C 49 MG/DL; POTASSIUM SERUM 4.1 MEQ/L (3.5-5.1); SODIUM LEVEL 142 MEQ/L (136-145); TOTAL PROTEIN 6.7 GM/DL (6.4-8.2); TRIGLYCERIDES LEVEL 67 MG/DL (<150)
[2019-04-08 18:06] LABS: HEMOGLOBIN A1c 6.4 %
[2019-04-08 18:20] LABS: MALB URINE SIEMENS 21.8 MG/L
== END ==
LOC: M SFHCLERA 14:16
PROVIDERS: ATTEND Family Medicine
DX: E11.8 Type 2 diabetes mellitus with unspecified complications (principal)

== ENCOUNTER 2019-05-13 09:53 | Emergency (ER) | payer BC, MEDICARE ==
[~2019-05-13] VITALS: Ht 172.7 cm; Wt 98.0 kg
[2019-05-13] MEDS ORDERED: ACETAMINOPHEN 500 MG TAB PO ONE (10:45)
--- NOTE | 2019-05-13 11:03 | REP ---
CT STUDY OF THE CERVICAL SPINE WITHOUT CONTRAST: HISTORY: Trauma. No comparison CT cervical spine study. There is a comparison MRI study of the cervical spine from April 19, 2011. TECHNIQUE: Helical scanning is acquired and overlapping 2 mm high resolution axial images were generated and reviewed at bone and soft tissue window settings. Coronal and sagittal multiplanar re-formations images are generated. CT FINDINGS: There is no evidence of cervical spine element fracture. No skull base fracture is seen. Cervical vertebral body heights are preserved. Alignment is normal. Facet joints are normally aligned bilaterally at each cervical level on multiplanar re-formations images. There is no evidence of intraspinal or paraspinal hematoma. No extra vertebral abnormality is seen. There is advanced degenerative discogenic spurring with large anterior osteophytes abutting each other at C4-5, C5-6, C6-7, and C7-T1. At C5, these exuberant osteophytes measure up to 1.5 cm in anteroposterior span. They exert mass effect and displacement on the pharyngoesophageal junction. They are unchanged when compared to the 2011 prior study. There is osteoarthritis at the articulation between the dens and the anterior arch of C1 and there is some mild facet osteoarthropathy. No traumatic abnormality. IMPRESSION: Advanced degenerative spondylosis changes. A large exuberant osteophytes anteriorly in the mid and lower cervical spine unchanged from 2011. Otherwise negative CT study of the cervical spine without contrast. No fracture seen. Electronically Signed by Tre Mcfarland MD 05/13/2019 03:02 P
--- NOTE | 2019-05-13 11:23 | REP ---
LEFT SHOULDER, THREE VIEWS: Three views of left shoulder performed. There is no acute fracture or dislocation. There is widening of the acromioclavicular joint, likely postsurgical, with mild calcification in the joint. There is mild narrowing of the humeral joint. IMPRESSION: Mild degenerative and postsurgical changes with no acute fracture or dislocation. Electronically Signed by Nick Doshi MD 05/13/2019 05:31 P
--- NOTE | 2019-05-13 11:46 | REP ---
THORACIC SPINE: AP and lateral views in the thoracic spine performed with three total views obtained. There is no compression fracture or malalignment with normal thoracic kyphosis. There is mild to moderate diffuse spurring with mild disc space narrowing and subchondral sclerosis at multiple levels. Posterior elements appear intact. There is mild curvature of the right. IMPRESSION: Diffuse degenerative changes without fracture or dislocation. Electronically Signed by Nick Doshi MD 05/13/2019 05:31 P
[2019-05-13] MEDS ORDERED: CYCL10TA PO (12:07)
[2019-05-13] MEDS ORDERED: ATOR80TA59 PO (12:10)
[2019-05-13] MEDS ORDERED: CARV6.25 PO (12:10)
[2019-05-13] MEDS ORDERED: BRIL90TA PO (12:10)
[2019-05-13] MEDS ORDERED: XARE20TA PO (12:10)
[2019-05-13 12:19] VITALS: BP 142/63
--- NOTE | 2019-05-14 08:57 | ECGEPIP ---
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
--- NOTE | 2019-05-14 13:29 | ED PDOC ---
Post-Departure Follow-Up dr brown faxed formal report of ct c spinefor fu Rigo Trinidad MD May 14, 2019 13:29
== END 2019-05-13 12:20 | disposition home or self-care (01) ==
LOC: M ED 09:53
DX: M51.34 Other intervertebral disc degeneration, thoracic region (principal); M51.36 Other intervertebral disc degeneration, lumbar region; M19.012 Primary osteoarthritis, left shoulder; M47.812 Spondylosis without myelopathy or radiculopathy, cervical region; Z91.81 History of falling; I48.91 Unspecified atrial fibrillation; E88.01 Alpha-1-antitrypsin deficiency; I25.2 Old myocardial infarction; I10 Essential (primary) hypertension; Z86.718 Personal history of other venous thrombosis and embolism; Z87.442 Personal history of urinary calculi; E11.9 Type 2 diabetes mellitus without complications; F32.9 Major depressive disorder, single episode, unspecified; Z88.5 Allergy status to narcotic agent; Z91.041 Radiographic dye allergy status; Z88.6 Allergy status to analgesic agent; Z79.899 Other long term (current) drug therapy; Z79.01 Long term (current) use of anticoagulants; Z79.84 Long term (current) use of oral hypoglycemic drugs

== ENCOUNTER → 2019-11-11 | Outpatient (REF) | payer BC ==
[~2019-11-11] MED LIST changes: +ATOR80TA59 PO; +BRIL90TA PO; +CARV6.25 PO; +CYCL10TA PO; -GLIM4TAB PO; +GLIM4TAB5 PO; +XARE20TA PO
[2019-11-11 21:02] LABS: ALBUMIN 3.8 GM/DL (3.2-5.2); ALT/SGPT 27 U/L (12-78); BILIRUBIN,TOTAL 0.5 MG/DL (0.2-1.0); BLOOD UREA NITROGEN 13 MG/DL (7-18); CARBON DIOXIDE LEVEL 30 MEQ/L (21-32); CHLORIDE LEVEL 106 MEQ/L (98-107); CHOLESTEROL LEVEL 100 MG/DL (<200); CHOLESTEROL RISK RATIO 2.222 (<5); CREATININE FOR GFR 0.96 MG/DL (0.70-1.30); GLOMERULAR FILTRATION RATE > 60.0 (>56); GLUCOSE, FASTING 138 MG/DL (70-100); HDL CHOLESTEROL 45 MG/DL (>40); LDL CHOLESTEROL 38 MG/DL (<100); NON-HDL-C 55 MG/DL; POTASSIUM SERUM 4.1 MEQ/L (3.5-5.1); SODIUM LEVEL 139 MEQ/L (136-145); TOTAL PROTEIN 6.8 GM/DL (6.4-8.2); TRIGLYCERIDES LEVEL 86 MG/DL (<150)
[2019-11-11 21:11] LABS: HEMOGLOBIN A1c 6.4 %
== END ==
LOC: M SFHCLERA 17:03
PROVIDERS: ATTEND Family Medicine
DX: E11.8 Type 2 diabetes mellitus with unspecified complications (principal)

== ENCOUNTER → 2019-12-15 | Outpatient (REF) | payer BC ==
[~2019-12-15] MED LIST changes: -ROPI0.5T; +ROPI0.5T3
== END ==
LOC: M SFHCLERA 10:53
PROVIDERS: ATTEND Nurse Practitioner Family
DX: J02.9 Acute pharyngitis, unspecified (principal)

== ENCOUNTER 2020-01-03 14:34 | Emergency (ER) | payer BC, MEDICARE ==
[~2020-01-03] VITALS: Ht 172.7 cm; Wt 93.8 kg
[2020-01-03] MEDS ORDERED: TIZA4TAB4 (14:45)
--- NOTE | 2020-01-03 16:03 | REP ---
Chest x-ray: Two views. History: Cough and chills . Comparison study: January 07, 2019 . Findings: The lungs are well inflated and free of infiltrate. The pleural angles are sharp. The heart size is normal. Pulmonary vasculature is not increased. No significant bony abnormality is seen. Impression: Negative chest x-ray. Electronically Signed by Tre Mcfarland MD 01/03/2020 03:55 P
[2020-01-03 16:04] LABS: BASO # 0.1 10^3/uL (0.0-0.2); BASO % 0.6 % (0.0-1.0); EOS # 0.7 10^3/uL (0.0-0.5); HEMOGLOBIN 15.1 g/dl (13.5-17.5); LYMPH # 1.5 10^3/uL (1.5-5.0); LYMPH % 17.4 % (24.0-44.0); MEAN CORPUSCULAR HEMOGLOBIN 31.3 pg (27.0-33.0); MEAN CORPUSCULAR HGB CONC 34.3 g/dl (32.0-36.5); MEAN CORPUSCULAR VOLUME 91.3 fl (80.0-96.0); MONO # 0.5 10^3/uL (0.0-0.8); MONO % 5.3 % (0.0-5.0); NEUTROPHILS # 5.8 10^3/uL (1.5-8.5); NEUTROPHILS % 68.5 % (36.0-66.0); PLATELET COUNT, AUTOMATED 154 10^3/uL (150-450); RED BLOOD COUNT 4.82 10^6/uL (4.30-6.10); WHITE BLOOD COUNT 8.5 10^3/uL (4.0-10.0)
[2020-01-03 16:22] LABS: INR 1.18; PROTHROMBIN TIME 14.7 SECONDS (11.8-14.0)
[2020-01-03 16:23] LABS: PARTIAL THROMBOPLASTIN TIME 28.7 SECONDS (25.0-38.4)
[2020-01-03 16:30] LABS: INFLUENZA A AMPLIFICATION NEGATIVE (NEGATIVE); INFLUENZA B AMPLIFICATION NEGATIVE (NEGATIVE)
[2020-01-03 16:31] LABS: BLOOD UREA NITROGEN 14 MG/DL (7-18); CALCIUM LEVEL 8.3 MG/DL (8.5-10.1); CARBON DIOXIDE LEVEL 28 MEQ/L (21-32); CHLORIDE LEVEL 110 MEQ/L (98-107); CREATININE FOR GFR 0.95 MG/DL (0.70-1.30); GLOMERULAR FILTRATION RATE > 60.0 (>56); GLUCOSE, FASTING 238 MG/DL (70-100); POTASSIUM SERUM 3.8 MEQ/L (3.5-5.1); SODIUM LEVEL 144 MEQ/L (136-145)
[2020-01-03] MEDS ORDERED: GUAI1SOL7 PO (17:06)
[2020-01-03 17:13] VITALS: BP 153/81
== END 2020-01-03 17:14 | disposition home or self-care (01) ==
LOC: M ED 14:34
DX: J06.9 Acute upper respiratory infection, unspecified (principal); E11.9 Type 2 diabetes mellitus without complications; I10 Essential (primary) hypertension; Z86.718 Personal history of other venous thrombosis and embolism; Z86.79 Personal history of other diseases of the circulatory system; Z88.5 Allergy status to narcotic agent; Z88.6 Allergy status to analgesic agent; Z91.041 Radiographic dye allergy status; Z79.51 Long term (current) use of inhaled steroids; Z79.899 Other long term (current) drug therapy; Z79.01 Long term (current) use of anticoagulants

== ENCOUNTER 2020-05-30 10:31 | Emergency (ER) | payer BC, MEDICARE ==
[~2020-05-30 10:31] MED LIST changes: +ACETAMINOPHEN 500 MG TAB As Ordered ONE; +ACETAMINOPHEN 500 MG TAB ONE; +BOOSTRIX/ADACEL VACCINE (DIPHTH/PERTUSS/ACELL/TETANUS) 0.5ML SYR As Ordered ONE; +BOOSTRIX/ADACEL VACCINE (DIPHTH/PERTUSS/ACELL/TETANUS) 0.5ML SYR ONE; -COUM7.5T PO; +COUM7.5T6 PO; +CYCL-707 PO; -CYCL10TA PO; +GUAI1SOL7 PO; +IBUPROFEN 800 MG TAB As Ordered ONE; +IBUPROFEN 800 MG TAB ONE; -LISI-1046; +LISI2.5T2; +TIZA4TAB4
== END 2020-05-30 11:19 | disposition home or self-care (01) ==
LOC: M ED 10:31
DX: S61.210A Laceration without foreign body of right index finger without damage to nail, initial encounter (principal); W23.0XXA Caught, crushed, jammed, or pinched between moving objects, initial encounter; Y92.9 Unspecified place or not applicable; Y93.9 Activity, unspecified; Y99.9 Unspecified external cause status; E78.49 Other hyperlipidemia; F17.200 Nicotine dependence, unspecified, uncomplicated; Z79.899 Other long term (current) drug therapy

== ENCOUNTER 2020-06-08 14:35 | Emergency (ER) | payer MEDICARE, BC ==
[~2020-06-08 14:35] MED LIST changes: -ACETAMINOPHEN 500 MG TAB As Ordered ONE; -ACETAMINOPHEN 500 MG TAB ONE; -BOOSTRIX/ADACEL VACCINE (DIPHTH/PERTUSS/ACELL/TETANUS) 0.5ML SYR As Ordered ONE; -BOOSTRIX/ADACEL VACCINE (DIPHTH/PERTUSS/ACELL/TETANUS) 0.5ML SYR ONE; -IBUPROFEN 800 MG TAB As Ordered ONE; -IBUPROFEN 800 MG TAB ONE
[2020-06-08] MEDS ORDERED: ISOVUE-370 76% 100ML VIAL As Ordered ONE (16:18)
[2020-06-08] MEDS ORDERED: diphenhydrAMINE 50MG/ML VIAL (J1200) As Ordered ONE (16:23)
[2020-06-08] MEDS ORDERED: diphenhydrAMINE 50MG/ML VIAL (J1200) ONE (16:23)
[2020-07-24 07:49] LABS: HEMATOCRIT 45.7 % (42.0-52.0); HEMOGLOBIN 15.5 g/dl (13.5-17.5); MEAN CORPUSCULAR HEMOGLOBIN 30.5 pg (27.0-33.0); MEAN CORPUSCULAR HGB CONC 33.9 g/dl (32.0-36.5); PLATELET COUNT, AUTOMATED 160 10^3/uL (150-450); RED BLOOD COUNT 5.08 10^6/uL (4.30-6.10)
[2020-07-24 07:54] LABS: INR 1.15; PARTIAL THROMBOPLASTIN TIME 31.3 SECONDS (24.2-38.5)
== END 2020-06-08 18:57 | disposition home or self-care (01) ==
LOC: M ED 14:35
DX: G90.09 Other idiopathic peripheral autonomic neuropathy (principal); J32.0 Chronic maxillary sinusitis; M50.30 Other cervical disc degeneration, unspecified cervical region; J32.2 Chronic ethmoidal sinusitis; H70.91 Unspecified mastoiditis, right ear; I11.0 Hypertensive heart disease with heart failure; E11.9 Type 2 diabetes mellitus without complications; E78.5 Hyperlipidemia, unspecified; Z88.5 Allergy status to narcotic agent; Z91.041 Radiographic dye allergy status; Z79.899 Other long term (current) drug therapy
CPT/HCPCS: 70450; 70496; 70498; 71046; 80048; 82550; 82553; 84484; 85027; 85610; 85730; 96374; 96375; 99284; J1200; Q9967

== ENCOUNTER → 2020-08-27 | Outpatient (CLI) | payer MEDICARE ==
[2020-08-30 13:06] LABS: ANTI DS-DNA AB Negative (Negative); ANTI-SMOOTH MUSCLE ANTIBODY 6 Units (0-19); RNP ANTIBODY < 0.2 AI (0.0-0.9); SMITHS ANTIBODY < 0.2 AI (0.0-0.9); SSA SJOGRENS A <0.2 AI (0.0-0.9); SSB SJOGRENS B <0.2 AI (0.0-0.9)
== END ==
LOC: M LAB 09:24
PROVIDERS: ATTEND Psychiatry & Neurology Neurology
DX: R76.8 Other specified abnormal immunological findings in serum (principal)

== ENCOUNTER → 2020-10-13 | Outpatient (CLI) | payer MEDICARE ==
[2020-10-13 16:18] LABS: HIV 1&2 SCREEN CENTAUR NEGATIVE (NEGATIVE)
== END ==
LOC: M LAB 14:14
PROVIDERS: ATTEND Nurse Practitioner Family
DX: Z11.3 Encounter for screening for infections with a predominantly sexual mode of transmission (principal)

== ENCOUNTER → 2020-11-05 | Outpatient (CLI) | payer MEDICARE ==
--- NOTE | 2020-11-05 11:24 | REP ---
INDICATION: TOBACCO USE COMPARISON: 10/19/2016 TECHNIQUE: Axial noncontrast images from the thoracic inlet to the upper abdomen using low-dose lung screening technique (LDCT). FINDINGS: The bilateral lung ann are well aerated and essentially clear. Small linear scarring along the medial right lower lobe is unchanged along with 9 mm noncalcified nodule (image 80) which remains essentially stable. No new consolidation, suspicious nodule or mass. No effusion. No pneumothorax. Tracheobronchial tree is patent. IMPRESSION: Solitary 9 mm noncalcified nodule in the right lower lobe unchanged compared to 2016. Lung-RADS category 2. Management recommendations include annual low-dose CT surveillance. <Electronically signed by Diego De > 11/05/20 [id number]
== END ==
LOC: M RAD 10:41
PROVIDERS: ATTEND Nurse Practitioner Family
DX: R91.1 Solitary pulmonary nodule (principal); Z12.2 Encounter for screening for malignant neoplasm of respiratory organs; F17.218 Nicotine dependence, cigarettes, with other nicotine-induced disorders

== ENCOUNTER → 2020-11-17 | Outpatient (CLI) | payer SELFPAY | LOC: M LABSMTC 12:25 | PROVIDERS: ATTEND Pediatrics | DX: Z20.822 Contact with and (suspected) exposure to COVID-19 (principal) ==

== ENCOUNTER 2021-02-02 10:42 | Emergency (ER) | payer MEDICARE ==
[~2021-02-02] VITALS: Ht 172.7 cm; Wt 99.8 kg
[2021-02-02] MEDS ORDERED: TRAZ150T90 (10:51)
[2021-02-02] MEDS ORDERED: OXCA150T21 (10:51)
--- NOTE | 2021-02-02 11:41 | REP ---
INDICATION: LEFT LOWER LEG PAIN/SWELLING COMPARISON: 10/08/2017. TECHNIQUE: Real time compression and duplex Doppler interrogation of the right lower extremity deep venous system is performed. FINDINGS: There is no thrombus seen in the common femoral vein. There is partially occlusive thrombus in the mid to distal left femoral vein and popliteal vein. IMPRESSION: There is no thrombus seen in the common femoral vein. There is partially occlusive thrombus in the mid to distal left femoral vein and popliteal vein. <Electronically signed by Nick Doshi > 02/02/21 [id number]
[2021-02-02 13:11] LABS: BASO # 0.1 10^3/uL (0.0-0.2); BASO % 0.7 % (0.0-1.0); EOS # 0.8 10^3/uL (0.0-0.5); EOS % 8.5 % (0.0-3.0); HEMATOCRIT 47.5 % (42.0-52.0); HEMOGLOBIN 16.3 g/dl (13.5-17.5); LYMPH % 20.8 % (24.0-44.0); MEAN CORPUSCULAR HEMOGLOBIN 31.3 pg (27.0-33.0); MEAN CORPUSCULAR HGB CONC 34.3 g/dl (32.0-36.5); MEAN CORPUSCULAR VOLUME 91.3 fl (80.0-96.0); MONO # 0.6 10^3/uL (0.0-0.8); MONO % 5.9 % (2.0-8.0); NEUTROPHILS # 6.1 10^3/uL (1.5-8.5); PLATELET COUNT, AUTOMATED 150 10^3/uL (150-450); WHITE BLOOD COUNT 9.5 10^3/uL (4.0-10.0)
[2021-02-02 13:21] LABS: INR 1.01; PROTHROMBIN TIME 13.5 SECONDS (12.5-14.3)
[2021-02-02 13:22] LABS: PARTIAL THROMBOPLASTIN TIME 26.9 SECONDS (24.2-38.5)
[2021-02-02] MEDS ORDERED: XARE15TA PO (13:51)
[2021-02-02 14:01] LABS: ALBUMIN 3.8 GM/DL (3.2-5.2); ALT/SGPT 19 U/L (12-78); BILIRUBIN,DIRECT < 0.1 MG/DL (0.0-0.2); BILIRUBIN,TOTAL 0.2 MG/DL (0.2-1.0); TOTAL PROTEIN 6.8 GM/DL (6.4-8.2)
[2021-02-02 14:10] LABS: CK-MB VALUE MASS 1.2 NG/ML (<3.6); CPK CREATINE PHOSPHOKINASE 56 U/L (39-308); MB/CK RELATIVE INDEX 2.14 (< OR =4); TROPONIN I < 0.02 NG/ML (< 0.10)
[2021-02-02] MEDS ORDERED: ROBA750T4 PO (14:13)
[2021-02-02 14:22] VITALS: BP 175/90
== END 2021-02-02 14:23 | disposition home or self-care (01) ==
LOC: M ED 10:42
DX: I82.432 Acute embolism and thrombosis of left popliteal vein (principal); I82.412 Acute embolism and thrombosis of left femoral vein; I11.0 Hypertensive heart disease with heart failure; E11.9 Type 2 diabetes mellitus without complications; E78.5 Hyperlipidemia, unspecified; I25.10 Atherosclerotic heart disease of native coronary artery without angina pectoris; I25.2 Old myocardial infarction; F33.9 Major depressive disorder, recurrent, unspecified; F17.200 Nicotine dependence, unspecified, uncomplicated; Z88.8 Allergy status to other drugs, medicaments and biological substances; Z91.041 Radiographic dye allergy status; Z79.01 Long term (current) use of anticoagulants; Z79.899 Other long term (current) drug therapy

== ENCOUNTER → 2021-02-28 | Outpatient (CLI) | payer MEDICARE ==
[~2021-02-28] MED LIST changes: +METH-1165; +OXCA150T21; +ROBA750T4 PO; +TRAZ150T90
--- NOTE | 2021-02-28 10:55 | REP ---
INDICATION: PAIN. COMPARISON: None. TECHNIQUE: Three views right shoulder. FINDINGS: No acute fracture or dislocation. There is moderate narrowing and spurring at the acromioclavicular joint. There is mild narrowing and spurring at the glenohumeral joint. IMPRESSION: No acute fracture or dislocation. Arthritic changes as above. <Electronically signed by Nick Doshi > 02/28/21 [id number]
== END ==
LOC: M WUC 10:05
PROVIDERS: ATTEND Nurse Practitioner Family
DX: M19.011 Primary osteoarthritis, right shoulder (principal)

== ENCOUNTER → 2021-04-20 | Outpatient (CLI) | payer MEDICARE ==
[~2021-04-20] MED LIST changes: +CLAR1TAB13 PO; +HYDR-3713 PO; -METH-1165; +METH-1165 PO; +OXCA150T21 PO; -ROPI0.5T3; +ROPI0.5T3 PO; -TRAZ150T90; +TRAZ150T90 PO
[2021-04-20 10:19] LABS: BASO # 0.1 10^3/uL (0.0-0.2); BASO % 0.7 % (0.0-1.0); EOS # 0.5 10^3/uL (0.0-0.5); EOS % 5.8 % (0.0-3.0); HEMATOCRIT 47.7 % (42.0-52.0); LYMPH # 1.2 10^3/uL (1.5-5.0); LYMPH % 13.4 % (24.0-44.0); MEAN CORPUSCULAR HEMOGLOBIN 31.1 pg (27.0-33.0); MEAN CORPUSCULAR HGB CONC 33.5 g/dl (32.0-36.5); MEAN CORPUSCULAR VOLUME 92.6 fl (80.0-96.0); MONO # 0.5 10^3/uL (0.0-0.8); MONO % 5.9 % (2.0-8.0); NEUTROPHILS # 6.5 10^3/uL (1.5-8.5); NEUTROPHILS % 73.9 % (36.0-66.0); PLATELET COUNT, AUTOMATED 161 10^3/uL (150-450); RED BLOOD COUNT 5.15 10^6/uL (4.30-6.10); WHITE BLOOD COUNT 8.8 10^3/uL (4.0-10.0)
[2021-04-20 10:31] LABS: INR 1.03; PROTHROMBIN TIME 13.7 SECONDS (12.5-14.3)
[2021-04-20 10:52] LABS: ALBUMIN 3.8 GM/DL (3.2-5.2); ALT/SGPT 24 U/L (12-78); BILIRUBIN,TOTAL 0.4 MG/DL (0.2-1.0); BLOOD UREA NITROGEN 18 MG/DL (7-18); CARBON DIOXIDE LEVEL 31 MEQ/L (21-32); CHLORIDE LEVEL 106 MEQ/L (98-107); CHOLESTEROL LEVEL 180 MG/DL (<200); CHOLESTEROL RISK RATIO 3.396 (<5); CREATININE FOR GFR 1.01 MG/DL (0.70-1.30); GLOMERULAR FILTRATION RATE > 60.0 (>56); GLUCOSE, FASTING 156 MG/DL (70-100); HDL CHOLESTEROL 53 MG/DL (>40); LDL CHOLESTEROL 114 MG/DL (<100); NON-HDL-C 127 MG/DL; POTASSIUM SERUM 4.6 MEQ/L (3.5-5.1); SODIUM LEVEL 138 MEQ/L (136-145); TOTAL PROTEIN 6.9 GM/DL (6.4-8.2); TRIGLYCERIDES LEVEL 66 MG/DL (<150)
[2021-04-20 11:00] LABS: MALB URINE SIEMENS 20.2 MG/L; MAU/CREAT RATIO 13.4 MCG/MG (0.0-30.0)
== END ==
LOC: M LAB 09:17
PROVIDERS: ATTEND Nurse Practitioner Family
DX: I82.402 Acute embolism and thrombosis of unspecified deep veins of left lower extremity (principal); E78.2 Mixed hyperlipidemia; E11.8 Type 2 diabetes mellitus with unspecified complications

== ENCOUNTER → 2021-06-13 | Outpatient (REF) | payer MEDICARE ==
[~2021-06-13] MED LIST changes: -LISI2.5T2; +LISI2.5T9
== END ==
LOC: M SFHCLERA 16:26
PROVIDERS: ATTEND Nurse Practitioner Family
DX: R05 Cough (principal); J02.9 Acute pharyngitis, unspecified

== ENCOUNTER → 2021-07-11 | Outpatient (CLI) | payer MEDICARE ==
--- NOTE | 2021-07-11 18:44 | REP ---
INDICATION: COUGH. COMPARISON: 06/08/2020 TECHNIQUE: PA and lateral FINDINGS: Minimal left CP angle blunting has developed since the last exam. The lung ann are otherwise clear and stable. The cardiomediastinal silhouette is stable. The heart is not enlarged. There is no change in the osseous structures. IMPRESSION: New development of left CP angle blunting. CT of the chest is recommended. <Electronically signed by Pedro Monsalve > 07/11/21 [id number]
== END ==
LOC: M RAD 16:57
PROVIDERS: ATTEND Nurse Practitioner Family
DX: R91.8 Other nonspecific abnormal finding of lung field (principal); R05 Cough

== ENCOUNTER → 2021-07-20 | Outpatient (CLI) | payer MEDICARE ==
[2021-07-20 16:47] LABS: BLOOD UREA NITROGEN 14 MG/DL (7-18); CALCIUM LEVEL 9.3 MG/DL (8.5-10.1); CARBON DIOXIDE LEVEL 26 MEQ/L (21-32); CHLORIDE LEVEL 108 MEQ/L (98-107); CREATININE FOR GFR 1.21 MG/DL (0.70-1.30); GLOMERULAR FILTRATION RATE > 60.0 (>56); GLUCOSE, FASTING 179 MG/DL (70-100); POTASSIUM SERUM 4.4 MEQ/L (3.5-5.1); SODIUM LEVEL 139 MEQ/L (136-145)
== END ==
LOC: M LAB 15:34
PROVIDERS: ATTEND Nurse Practitioner Family
DX: I10 Essential (primary) hypertension (principal)

== ENCOUNTER → 2021-07-21 | Outpatient (CLI) | payer MEDICARE ==
--- NOTE | 2021-07-21 09:55 | REP ---
INDICATION: ABN CHEST XRAY. COMPARISON: Comparison is made with CT study of the chest from November 05, 2020 and recent chest x-ray from July 11, 2021. TECHNIQUE: Helical scanning is acquired. 3 mm axial images are generated. Coronal and sagittal MPR and coronal MIP images are generated. FINDINGS: Digital preliminary diplomatic interpreter radiograph is unremarkable. Axial CT images show no evidence of pleural effusion on either side. No pericardial effusion is seen. No hilar or mediastinal mass or adenopathy is observed. There is mild vascular calcification in the distribution of the coronary arteries unchanged. There is a stable 9 mm right lower lobe pulmonary nodule again noted on page 88 of 116 in series 201 of today's study. This is unchanged from the November 06, 2020 study. This is also unchanged from a prior CT study from August 17, 2015. No new pulmonary nodule is seen. No mass, infiltrate, atelectasis seen. IMPRESSION: No active cardiopulmonary disease. There is no evidence of pleural effusion. There is a stable 9 mm noncalcified pulmonary nodule unchanged from 2015. <Electronically signed by Spencer Mcfarland > 07/21/21 [id number]
== END ==
LOC: M RAD 09:15
PROVIDERS: ATTEND Nurse Practitioner Family
DX: R93.89 Abnormal findings on diagnostic imaging of other specified body structures (principal)

== ENCOUNTER → 2021-10-21 | Outpatient (CLI) | payer MEDICARE ==
[~2021-10-21] MED LIST changes: +AMOX500T2 PO; +TIZA10TA; -TIZA4TAB4
== END ==
LOC: M LABSMTC 09:19
PROVIDERS: ATTEND Anesthesiology
DX: Z20.828 Contact with and (suspected) exposure to other viral communicable diseases (principal)

== ENCOUNTER 2021-10-26 08:48 | Day surgery (SDC) | payer MEDICARE ==
[~2021-10-26] VITALS: Ht 172.7 cm; Wt 98.9 kg
[~2021-10-26 08:48] MED LIST changes: +LIDOCAINE 1% MDV 20ML VIAL SQ PRN; +LR 1,000 ML IV ONE; -TIZA10TA; +TIZA4TAB4
[2021-10-26] MEDS ORDERED: EPINEPHrine 1MG/ML INJ 30ML MD-VIAL As Ordered ONE (10:28)
[2021-10-26] MEDS ORDERED: METHYLENE BLUE 0.5% (5MG/ML) 10 ML AMP (PROVAYBLUE) As Ordered ONE (10:28)
[2021-10-26] MEDS ORDERED: LIDOCAINE W/EPINEPHRINE 1% 20ML VIAL As Ordered ONE (10:28)
[2021-10-26] MEDS ORDERED: CIPRODEX OTIC SUSP 7.5ML As Ordered ONE (10:28)
[2021-10-26] MEDS ORDERED: propofoL 200 MG/20 ML VIAL As Ordered ONE (11:10)
[2021-10-26] MEDS ORDERED: MIDAZOLAM INJ 2MG/2ML VIAL (J2250 PER 1MG) As Ordered ONE (11:10)
[2021-10-26] MEDS ORDERED: ONDANSETRON 4MG/2ML VIAL As Ordered ONE (11:10)
[2021-10-26] MEDS ORDERED: LIDOCAINE 2% 100MG/5ML SDV (FOR ANES.) As Ordered ONE (11:10)
[2021-10-26] MEDS ORDERED: dexameTHASONE 4 MG/ML 1ML VIAL (J1100 PER 1MG) As Ordered ONE (11:10)
[2021-10-26] MEDS ORDERED: ROCURONIUM BROMIDE 50 MG/5 ML VIAL As Ordered ONE (11:10)
[2021-10-26] MEDS ORDERED: fentaNYL 250 MCG/5 ML INJECTION (J3010) As Ordered ONE (11:10)
[2021-10-26] MEDS ORDERED: SUGAMMADEX SODIUM 500 MG/5 ML VIAL (BRIDION) As Ordered ONE (11:10)
[2021-10-26] MEDS ORDERED: PHENYLephrine 500MCG 5ML (100MCG/ML) SYRINGE As Ordered ONE (11:12)
[2021-10-26] MEDS: LABETALOL 100MG/20ML VIAL IV PRN ×2 (12:25→12:30)
[2021-10-26] MEDS ORDERED: fentaNYL 100 MCG/2 ML INJECTION (J3010) IV PRN (13:00)
[2021-10-26] MEDS ORDERED: ONDANSETRON 4MG/2ML VIAL IV PRN (13:00)
[2021-10-26] MEDS ORDERED: LR 1,000 ML IV SCH (13:00)
[2021-10-26] MEDS: oxyCODONE 5MG TAB PO PRN ×2 (13:03→13:37)
[2021-10-26] MEDS: HYDROMORPHONE HCL 0.5 MG/ 0.5 ML SYRINGE (J1170 PER 1) IV PRN ×4 (13:03→13:36)
[2021-10-26] MEDS: hydrALAZINE 20MG/ML 1ML VIAL (J0360 PER 20MG) IV PRN ×3 (13:43→13:55)
[2021-10-26 13:55] VITALS: BP 170/91
[2021-10-26 14:31] VITALS: BP 145/84
--- NOTE | 2021-10-26 17:54 | RO ---
OPERATIVE NOTE DATE OF OPERATION: 10/26/2021 PREOPERATIVE DIAGNOSIS: Chronic sinusitis, otitis media with effusion, right side. POSTOPERATIVE DIAGNOSIS: Chronic sinusitis, otitis media with effusion, right side. OPERATIVE PROCEDURE: Right polypectomy, antrostomy, ethmoidectomy, nasal frontal sinusotomy and tympanostomy. Irrigation, right maxillary sinus. SURGEON: Tima Brambila MD SUPERVISOR NET MAKING: ANESTHESIA: FINDINGS: Polypoid tissue within the nose on right side and pus in the right ethmoid and maxillary sinus. I did use the microdebrider during the procedure and the endoscope. DESCRIPTION OF PROCEDURE: Under general anesthesia with the patient intubated, the patient draped in the usual manner. I used pledgets of adrenalin 1:100,000. On the right side, I entered the nose and then removed the polypoid tissue. I identified the middle turbinate. I went medial to this. I went through the anterior and into the posterior ethmoidal cells and opened up that area well. Once that was done then I did identify the medial wall of the maxillary sinus and opened that up and flushed out the maxillary sinus pus. I used the microdebrider to enlarge the opening into the sinus. There was a fungus piece within the maxillary sinus which I flushed out. It measured about a cm. in diameter. In addition, I had irrigated the sinus. There was less than 50 mL estimated blood loss. I put in a Propel implant. The patient extubated and transferred to the recovery room in excellent condition.
== END 2021-10-26 14:36 | disposition home or self-care (01) ==
LOC: M SDC 08:48
PROVIDERS: ATTEND Otolaryngology
DX: J32.9 Chronic sinusitis, unspecified (principal); H65.21 Chronic serous otitis media, right ear; G47.33 Obstructive sleep apnea (adult) (pediatric); E11.9 Type 2 diabetes mellitus without complications; F17.218 Nicotine dependence, cigarettes, with other nicotine-induced disorders; Z88.5 Allergy status to narcotic agent; Z88.8 Allergy status to other drugs, medicaments and biological substances; Z91.041 Radiographic dye allergy status; I25.2 Old myocardial infarction; Z79.01 Long term (current) use of anticoagulants; Z98.61 Coronary angioplasty status; Z79.899 Other long term (current) drug therapy
CPT/HCPCS: 31237; 31255; 69436; 88305; J0360; J1100; J1170; J2250; J2370; J2405; J3010; Q9968

== ENCOUNTER → 2022-08-07 | Outpatient (REF) | payer MEDICARE ==
[~2022-08-07] MED LIST changes: -LIDOCAINE 1% MDV 20ML VIAL SQ PRN; -LR 1,000 ML IV ONE; +TIZA10TA; -TIZA4TAB4
[2022-08-07 17:03] LABS: BASO # 0.1 10^3/uL (0.0-0.2); BASO % 1.1 % (0.0-1.0); EOS # 0.6 10^3/uL (0.0-0.5); EOS % 7.6 % (0.0-3.0); HEMATOCRIT 44.4 % (42.0-52.0); HEMOGLOBIN 15.2 g/dl (13.5-17.5); LYMPH # 1.3 10^3/uL (1.5-5.0); LYMPH % 16.9 % (24.0-44.0); MEAN CORPUSCULAR HEMOGLOBIN 31.5 pg (27.0-33.0); MEAN CORPUSCULAR HGB CONC 34.2 g/dl (32.0-36.5); MEAN CORPUSCULAR VOLUME 92.1 fl (80.0-96.0); MONO # 0.4 10^3/uL (0.0-0.8); MONO % 5.3 % (2.0-8.0); NEUTROPHILS # 5.2 10^3/uL (1.5-8.5); NEUTROPHILS % 68.8 % (36.0-66.0); PLATELET COUNT, AUTOMATED 161 10^3/uL (150-450); RED BLOOD COUNT 4.82 10^6/uL (4.30-6.10); WHITE BLOOD COUNT 7.5 10^3/uL (4.0-10.0)
[2022-08-07 17:42] LABS: ALBUMIN 3.8 GM/DL (3.2-5.2); ALT/SGPT 20 U/L (12-78); BILIRUBIN,TOTAL 0.3 MG/DL (0.2-1.0); BLOOD UREA NITROGEN 23 MG/DL (7-18); CALCIUM LEVEL 8.8 MG/DL (8.5-10.1); CARBON DIOXIDE LEVEL 25 MEQ/L (21-32); CHLORIDE LEVEL 106 MEQ/L (98-107); CHOLESTEROL LEVEL 174 MG/DL (<200); CHOLESTEROL RISK RATIO 3.411 (<5); CREATININE FOR GFR 1.01 MG/DL (0.70-1.30); GLOMERULAR FILTRATION RATE > 60.0 (>56); GLUCOSE, FASTING 173 MG/DL (70-100); HDL CHOLESTEROL 51 MG/DL (>40); LDL CHOLESTEROL 101 MG/DL (<100); MALB URINE SIEMENS 32.7 MG/L; MAU/CREAT RATIO 14.8 MCG/MG (0.0-30.0); NON-HDL-C 123 MG/DL; POTASSIUM SERUM 4.1 MEQ/L (3.5-5.1); SODIUM LEVEL 136 MEQ/L (136-145); THYROID STIMULATING HORMONE 0.518 uIU/ML (0.358-3.740); TOTAL PROTEIN 7.1 GM/DL (6.4-8.2); TRIGLYCERIDES LEVEL 110 MG/DL (<150)
[2022-08-07 17:49] LABS: HEMOGLOBIN A1c 6.7 %
== END ==
LOC: M SFHCCAPE 11:29
PROVIDERS: ATTEND Physician Assistant
DX: G47.00 Insomnia, unspecified (principal); E11.8 Type 2 diabetes mellitus with unspecified complications; Z12.5 Encounter for screening for malignant neoplasm of prostate
CPT/HCPCS: 80053; 80061; 82043; 83036; 84443; 85025; G0103

== ENCOUNTER → 2022-10-03 | Outpatient (REF) | payer MEDICARE ==
[2022-10-03 16:12] LABS: RSV AMPLIFICATION NEGATIVE (NEGATIVE)
== END ==
LOC: M SFHCPLAZ 15:06
PROVIDERS: ATTEND Physician Assistant
DX: J01.90 Acute sinusitis, unspecified (principal)

== ENCOUNTER → 2022-10-18 | Outpatient (CLI) | payer MEDICARE | LOC: M SOG 09:09 | PROVIDERS: ATTEND Physician Assistant | DX: M79.642 Pain in left hand (principal) ==

== ENCOUNTER → 2022-11-10 | Outpatient (CLI) | payer MEDICARE | LOC: M SOG 08:07 | PROVIDERS: ATTEND Orthopaedic Surgery | DX: M19.011 Primary osteoarthritis, right shoulder (principal) ==

== ENCOUNTER → 2023-01-23 | Outpatient (CLI) | payer MEDICARE ==
[~2023-01-23] MED LIST changes: +MONT-5 PO; -SING10TA32 PO
== END ==
LOC: M RAD 09:29
PROVIDERS: ATTEND Physician Assistant
DX: Z12.2 Encounter for screening for malignant neoplasm of respiratory organs (principal); F17.210 Nicotine dependence, cigarettes, uncomplicated

== ENCOUNTER 2023-04-10 06:41 | Day surgery (SDC) | payer MEDICARE ==
[~2023-04-10] VITALS: Ht 172.7 cm; Wt 93.9 kg
[~2023-04-10 06:41] MED LIST changes: +BSS IRR 500ML/OMIDRIA 4ML IRR BAG (OR ONLY) As Ordered ONE; +CEFUROXIME 1MG/0.1ML INTRACAMERAL INJ As Ordered ONE; +LIDOCAINE 1% SDV 5ML VIAL As Ordered ONE; +LISI2.5T9 PO; +PROPARACAINE 0.5% OPHTH SOL 15ML OD ONE; +TRAZ-189 PO; +TRUL0.5I SC
[2023-04-10] MEDS: TROPICAMIDE 1% OPHTH SOLN 15ML OD SCH ×2 (07:03→08:49)
[2023-04-10] MEDS: OFLOXACIN 0.3 % (OCUFLOX) OPTH SOL 5ML OD SCH ×2 (07:03→08:49)
[2023-04-10] MEDS: CYCLOPENTOLATE 1% OPHTH SOLN 2ML BTL OD SCH ×3 (07:03→08:49)
[2023-04-10] MEDS: PHENYLEPHRINE 2.5% OPHTH SOL 2ML OD SCH ×2 (07:03→08:49)
[2023-04-10] MEDS ORDERED: MAGN400C2 PO (07:06)
[2023-04-10] MEDS ORDERED: MIDAZOLAM INJ 2MG/2ML VIAL As Ordered ONE (08:08)
[2023-04-10 08:35] VITALS: BP 118/75; TEMP 96.3; O2SAT 97
[2023-04-10] MEDS ORDERED: LIDOCAINE 1% SDV 5ML VIAL SC PRN (08:55)
== END 2023-04-10 09:12 | disposition home or self-care (01) ==
LOC: M SDC 06:41
PROVIDERS: ATTEND Ophthalmology
DX: H25.11 Age-related nuclear cataract, right eye (principal); I10 Essential (primary) hypertension; E11.9 Type 2 diabetes mellitus without complications; I73.9 Peripheral vascular disease, unspecified; G47.33 Obstructive sleep apnea (adult) (pediatric); F17.210 Nicotine dependence, cigarettes, uncomplicated; Z86.718 Personal history of other venous thrombosis and embolism; Z79.899 Other long term (current) drug therapy; Z88.5 Allergy status to narcotic agent; Z88.8 Allergy status to other drugs, medicaments and biological substances; Z91.041 Radiographic dye allergy status; I25.2 Old myocardial infarction; Z98.61 Coronary angioplasty status
CPT/HCPCS: 66984; J0697; J1097; J2250; V2632

== ENCOUNTER → 2023-04-19 | Outpatient (REF) | payer MEDICARE ==
[~2023-04-19] MED LIST changes: -BSS IRR 500ML/OMIDRIA 4ML IRR BAG (OR ONLY) As Ordered ONE; -CEFUROXIME 1MG/0.1ML INTRACAMERAL INJ As Ordered ONE; -LIDOCAINE 1% SDV 5ML VIAL As Ordered ONE; +MAGN400C2 PO; -PROPARACAINE 0.5% OPHTH SOL 15ML OD ONE
[2023-04-19 18:41] LABS: APPEARANCE, URINE MANUAL TURBID (CLEAR); COLOR, URINE MANUAL YELLOW (YELLOW)
[2023-04-19 18:43] LABS: BILIRUBIN, URINE MANUAL NEGATIVE (NEGATIVE); BLOOD URINE MANUAL NEGATIVE (NEGATIVE); GLUCOSE, URINE (UA) MANUAL 1+(100 MG/DL) mg/dL (NEGATIVE); KETONE, URINE MANUAL NEGATIVE (NEGATIVE); LEUKOCYTE ESTERASE, URINE MAN NEGATIVE (NEGATIVE); NITRITE, URINE MANUAL NEGATIVE (NEGATIVE); PROTEIN, URINE MANUAL NEGATIVE (NEGATIVE); UROBILINOGEN, URINE MANUAL NORMAL (NORMAL)
[2023-04-19 19:39] LABS: GC DNA AMPLIFICATION NEGATIVE (NEGATIVE)
[2023-04-19 20:20] LABS: AMORPHOUS SEDIMENT, URINE LARGE AMOUNT (NEGATIVE); BACTERIA, URINE NONE SEEN; MUCUS, URINE MOD AMOUNT (NEGATIVE); RBC, URINE NONE SEEN /hpf (0-3); SQUAMOUS EPITHELIAL CELL URINE SMALL AMOUNT /hpf (SMALL AMT)
[2023-04-19 20:21] LABS: HYALINE CAST, URINE NONE SEEN /lpf (0-1)
== END ==
LOC: M SFHCLERA 16:46
PROVIDERS: ATTEND Student in an Organized Health Care Education/Training Program
DX: N50.819 Testicular pain, unspecified (principal)

== ENCOUNTER 2023-06-05 06:30 | Day surgery (SDC) | payer MEDICARE ==
[~2023-06-05] VITALS: Ht 172.7 cm; Wt 91.7 kg
[~2023-06-05 06:30] MED LIST changes: +ASPI-655 PO; +CYCLOPENTOLATE 1% OPHTH SOLN 2ML BTL OS SCH; +OFLOXACIN 0.3 % (OCUFLOX) OPTH SOL 5ML OS SCH; +PHENYLEPHRINE 2.5% OPHTH SOL 2ML OS SCH; +PROPARACAINE 0.5% OPHTH SOL 15ML OS ONE; -ROPI0.5T3 PO; +ROPI0.5T33 PO; +TROPICAMIDE 1% OPHTH SOLN 15ML OS SCH
[2023-06-05] MEDS ORDERED: BSS IRR 500ML/OMIDRIA 4ML IRR BAG (OR ONLY) As Ordered ONE (06:44)
[2023-06-05] MEDS ORDERED: CEFUROXIME 1MG/0.1ML INTRACAMERAL INJ As Ordered ONE (06:45)
[2023-06-05] MEDS ORDERED: LIDOCAINE 1% SDV 5ML VIAL As Ordered ONE (06:45)
[2023-06-05] MEDS ORDERED: MIDAZOLAM INJ 2MG/2ML VIAL As Ordered ONE (07:16)
[2023-06-05] MEDS ORDERED: fentaNYL 100 MCG/2 ML INJECTION As Ordered ONE (07:16)
[2023-06-05 08:00] VITALS: BP 108/66; TEMP 97.2; O2SAT 96
== END 2023-06-05 08:16 | disposition home or self-care (01) ==
LOC: M SDC 06:30
PROVIDERS: ATTEND Ophthalmology
DX: H25.12 Age-related nuclear cataract, left eye (principal); I25.2 Old myocardial infarction; E11.9 Type 2 diabetes mellitus without complications; Z79.899 Other long term (current) drug therapy; Z88.6 Allergy status to analgesic agent; Z88.5 Allergy status to narcotic agent
CPT/HCPCS: 66984; J0697; J1097; J2250; J3010; V2632

== ENCOUNTER → 2023-11-01 | Outpatient (REF) | payer MEDICARE ==
[~2023-11-01] MED LIST changes: -CYCLOPENTOLATE 1% OPHTH SOLN 2ML BTL OS SCH; +HYDR1SYP7 PO; -HYDR5SYP11 PO; -OFLOXACIN 0.3 % (OCUFLOX) OPTH SOL 5ML OS SCH; -PHENYLEPHRINE 2.5% OPHTH SOL 2ML OS SCH; -PROPARACAINE 0.5% OPHTH SOL 15ML OS ONE; -TROPICAMIDE 1% OPHTH SOLN 15ML OS SCH
== END ==
LOC: M SFHCLERA 17:30
PROVIDERS: ATTEND Physician Assistant
DX: R05.3 Chronic cough (principal)

== ENCOUNTER → 2023-11-25 | Outpatient (CLI) | payer MEDICARE ==
[2023-11-25 09:17] LABS: HEMATOCRIT 41.3 % (42.0-52.0); HEMOGLOBIN 14.2 g/dl (13.5-17.5); MEAN CORPUSCULAR HEMOGLOBIN 31.3 pg (27.0-33.0); MEAN CORPUSCULAR HGB CONC 34.4 g/dl (32.0-36.5); MEAN CORPUSCULAR VOLUME 91.2 fl (80.0-96.0); PLATELET COUNT, AUTOMATED 148 10^3/uL (150-450); RED BLOOD COUNT 4.53 10^6/uL (4.30-6.10); WHITE BLOOD COUNT 7.2 10^3/uL (4.0-10.0)
[2023-11-25 09:34] LABS: HEMOGLOBIN A1c 5.7 % (4.0-6.0)
[2023-11-25 09:48] LABS: ALBUMIN 3.5 G/DL (3.2-5.2); ALKALINE PHOSPHATASE 81 U/L (46-116); ALT/SGPT 22 U/L (7.0-40); AST/SGOT 23 U/L (<34); BILIRUBIN,TOTAL 0.6 MG/DL (0.3-1.2); BLOOD UREA NITROGEN 17 MG/DL (9-23); CALCIUM LEVEL 8.6 MG/DL (8.3-10.6); CARBON DIOXIDE LEVEL 28 MMOL/L (20-31); CHLORIDE LEVEL 107 MMOL/L (98-107); CHOLESTEROL LEVEL 139 MG/DL (<200); CHOLESTEROL RISK RATIO 2.84 (<5); CREATININE FOR GFR 0.97 MG/DL (0.70-1.30); GLOMERULAR FILTRATION RATE > 60.0 (>49); GLUCOSE, FASTING 119 MG/DL (74-106); HDL CHOLESTEROL 48.8 MG/DL (>40); LDL CHOLESTEROL 76.6 MG/DL (<100); NON-HDL-C 90.2 MG/DL; SODIUM LEVEL 138 MMOL/L (136-145); TOTAL PROTEIN 6.2 G/DL (5.7-8.2); TRIGLYCERIDES LEVEL 68 MG/DL (<150)
[2023-11-25 09:51] LABS: THYROID STIMULATING HORMONE 1.098 uIU/ML (0.55-4.78)
== END ==
LOC: M LAB 08:40
PROVIDERS: ATTEND Internal Medicine Cardiovascular Disease
DX: E11.59 Type 2 diabetes mellitus with other circulatory complications (principal); I10 Essential (primary) hypertension

== ENCOUNTER 2023-12-27 22:16 | Emergency (ER) | payer MEDICARE, OTHER ==
[~2023-12-27] VITALS: Ht 172.7 cm; Wt 84.5 kg
[2023-12-28 00:16] LABS: BLOOD UREA NITROGEN 15 MG/DL (9-23); CARBON DIOXIDE LEVEL 23 MMOL/L (20-31); CHLORIDE LEVEL 107 MMOL/L (98-107); CK-MB VALUE MASS 1.6 NG/ML (<3.6); CREATININE FOR GFR 0.81 MG/DL (0.70-1.30); GLOMERULAR FILTRATION RATE > 60.0 (>49); GLUCOSE, FASTING 106 MG/DL (74-106); POTASSIUM SERUM 3.7 MMOL/L (3.5-5.1); SODIUM LEVEL 135 MMOL/L (136-145)
[2023-12-28 00:17] LABS: CPK CREATINE PHOSPHOKINASE 73 U/L (46-171); MB/CK RELATIVE INDEX 2.19 (< OR =4)
[2023-12-28 00:22] LABS: BASO % 0.5 % (0.0-1.0); EOS # 0.3 10^3/uL (0.0-0.5); EOS % 4.4 % (0.0-3.0); HEMATOCRIT 37.1 % (42.0-52.0); HEMOGLOBIN 12.8 g/dl (13.5-17.5); LYMPH # 1.5 10^3/uL (1.5-5.0); LYMPH % 19.4 % (24.0-44.0); MEAN CORPUSCULAR HEMOGLOBIN 30.6 pg (27.0-33.0); MEAN CORPUSCULAR HGB CONC 34.5 g/dl (32.0-36.5); MEAN CORPUSCULAR VOLUME 88.8 fl (80.0-96.0); MONO # 0.5 10^3/uL (0.0-0.8); NEUTROPHILS # 5.2 10^3/uL (1.5-8.5); NEUTROPHILS % 68.4 % (36.0-66.0); PLATELET COUNT, AUTOMATED 165 10^3/uL (150-450); RED BLOOD COUNT 4.18 10^6/uL (4.30-6.10); WHITE BLOOD COUNT 7.6 10^3/uL (4.0-10.0)
[2023-12-28 01:45] LABS: CK-MB VALUE MASS 1.5 NG/ML (<3.6)
[2023-12-28 01:46] LABS: MB/CK RELATIVE INDEX 2.05 (< OR =4)
[2023-12-28] MEDS: methylPREDNISolone 125MG 2ML VIAL IV ONE (02:54)
[2023-12-28] MEDS: IPRATROPIUM 0.5MG/ALBUTEROL 2.5MG INH SOL UD 3ML (DUONEB) NEB ONE (03:08)
[2023-12-28] MEDS ORDERED: methocarbamoL 750 MG TAB PO ONE (03:45)
[2023-12-28] MEDS ORDERED: VENTAER INH (03:56)
[2023-12-28] MEDS ORDERED: PRED20TA PO (03:56)
[2023-12-28 04:16] VITALS: BP 126/89; TEMP 98.1; O2SAT 99
== END 2023-12-28 04:20 | disposition home or self-care (01) ==
LOC: M ED 22:16
DX: J44.1 Chronic obstructive pulmonary disease with (acute) exacerbation (principal); E11.9 Type 2 diabetes mellitus without complications; I10 Essential (primary) hypertension; E78.5 Hyperlipidemia, unspecified; I25.2 Old myocardial infarction; F17.200 Nicotine dependence, unspecified, uncomplicated; Z91.041 Radiographic dye allergy status; Z88.5 Allergy status to narcotic agent; Z88.6 Allergy status to analgesic agent; Z79.52 Long term (current) use of systemic steroids; Z79.82 Long term (current) use of aspirin; Z79.4 Long term (current) use of insulin; Z79.811 Long term (current) use of aromatase inhibitors; Z79.899 Other long term (current) drug therapy
CPT/HCPCS: 71045; 80048; 82550; 82553; 84484; 85025; 93005; 93041; 93970; 94640; 94760; 96374; 99285; J2930

== ENCOUNTER → 2024-05-21 | Outpatient (REF) | payer MEDICARE ==
[~2024-05-21] MED LIST changes: -DILT1CAP46; +DILT360C22; +VENTAER INH
[2024-05-21 16:55] LABS: APPEARANCE, URINE HAZY (CLEAR); BACTERIA, URINE AUTO 1+ (NEGATIVE); BILIRUBIN, URINE AUTO NEGATIVE (NEGATIVE); BLOOD, URINE BLOOD NEGATIVE (NEGATIVE); COLOR, URINE YELLOW (YELLOW); GLUCOSE, URINE (UA) AUTO 2+ mg/dL (NEGATIVE); KETONE, URINE AUTO NEGATIVE (NEGATIVE); LEUKOCYTE ESTERASE, URINE AUTO NEGATIVE (NEGATIVE); MUCUS, URINE SMALL (NEGATIVE); NITRITE, URINE AUTO NEGATIVE (NEGATIVE); PROTEIN, URINE AUTO NEGATIVE (NEGATIVE); RBC, URINE AUTO 1 /HPF (0-3); SPECIFIC GRAVITY URINE AUTO 1.017 (1.002-1.035); SQUAMOUS EPITHELIAL CELL UR AU 0 /HPF (0-6); TRANSITIONAL EPITHELIAL AUTO 1 /HPF; UROBILINOGEN, URINE AUTO 0.2 mg/dL (0.0-2.0); WBC, URINE AUTO 4 /HPF (0-3)
[2024-05-21 17:20] LABS: CREATININE, URINE 120.7 MG/DL
[2024-05-21 19:15] LABS: ALBUMIN 3.8 G/DL (3.2-5.2); ALKALINE PHOSPHATASE 91 U/L (46-116); ALT/SGPT 15 U/L (7.0-40); AST/SGOT 9 U/L (<34); BILIRUBIN,TOTAL 0.4 MG/DL (0.3-1.2); BLOOD UREA NITROGEN 19 MG/DL (9-23); CALCIUM LEVEL 9.3 MG/DL (8.3-10.6); CARBON DIOXIDE LEVEL 30 MMOL/L (20-31); CHLORIDE LEVEL 104 MMOL/L (98-107); CHOLESTEROL LEVEL 175 MG/DL (<200); CHOLESTEROL RISK RATIO 3.88 (<5); CREATININE FOR GFR 0.89 MG/DL (0.70-1.30); GLOMERULAR FILTRATION RATE > 60.0 (>49); GLUCOSE, FASTING 93 MG/DL (74-106); HDL CHOLESTEROL 45.1 MG/DL (>40); LDL CHOLESTEROL 91.5 MG/DL (<100); NON-HDL-C 129.9 MG/DL; POTASSIUM SERUM 4.8 MMOL/L (3.5-5.1); SODIUM LEVEL 137 MMOL/L (136-145); TOTAL PROTEIN 6.4 G/DL (5.7-8.2); TRIGLYCERIDES LEVEL 192 MG/DL (<150)
[2024-05-21 19:20] LABS: HEMOGLOBIN A1c 6.6 % (4.0-6.0)
== END ==
LOC: M LAB REF 16:20
PROVIDERS: ATTEND Family Medicine Addiction Medicine
DX: I10 Essential (primary) hypertension (principal); Z12.5 Encounter for screening for malignant neoplasm of prostate
CPT/HCPCS: 80053; 80061; 81001; 82043; 83036; 87086; G0103

== ENCOUNTER → 2024-05-26 | Outpatient (CLI) | payer MEDICARE | LOC: M RAD 06:35 | PROVIDERS: ATTEND Family Medicine | DX: Z12.2 Encounter for screening for malignant neoplasm of respiratory organs (principal); F17.210 Nicotine dependence, cigarettes, uncomplicated ==

== ENCOUNTER → 2024-08-15 | Outpatient (CLI) | payer MEDICARE | LOC: M RAD 10:13 | PROVIDERS: ATTEND Otolaryngology | DX: H92.01 Otalgia, right ear (principal) ==

== ENCOUNTER → 2024-10-01 | Outpatient (REF) | payer MEDICARE ==
[2024-10-01 14:01] LABS: CREATININE, URINE 257.4 MG/DL
[2024-10-01 14:26] LABS: THYROID STIMULATING HORMONE 0.972 uIU/ML (0.55-4.78)
[2024-10-01 14:27] LABS: ALBUMIN 3.3 G/DL (3.2-5.2); ALKALINE PHOSPHATASE 101 U/L (40-129); ALT/SGPT 29 U/L (7.0-40); AST/SGOT 19 U/L (<34); BILIRUBIN,TOTAL 0.4 MG/DL (0.3-1.2); BLOOD UREA NITROGEN 14 MG/DL (9-23); CALCIUM LEVEL 8.8 MG/DL (8.3-10.6); CARBON DIOXIDE LEVEL 26 MMOL/L (20-31); CHLORIDE LEVEL 105 MMOL/L (98-107); CHOLESTEROL LEVEL 150 MG/DL (<200); CHOLESTEROL RISK RATIO 3.16 (<5); CREATININE FOR GFR 0.96 MG/DL (0.70-1.30); GLOMERULAR FILTRATION RATE > 60.0 (>49); GLUCOSE, FASTING 181 MG/DL (74-106); HDL CHOLESTEROL 47.4 MG/DL (>40); HEMOGLOBIN A1c 5.9 % (4.0-6.0); LDL CHOLESTEROL 91.6 MG/DL (<100); NON-HDL-C 102.6 MG/DL; POTASSIUM SERUM 4.6 MMOL/L (3.5-5.1); SODIUM LEVEL 139 MMOL/L (136-145); TOTAL PROTEIN 6.1 G/DL (5.7-8.2); TRIGLYCERIDES LEVEL 55 MG/DL (<150)
== END ==
LOC: M LAB REF 12:16
PROVIDERS: ATTEND Family Medicine Addiction Medicine
DX: E11.9 Type 2 diabetes mellitus without complications (principal)

== ENCOUNTER → 2025-05-22 | Outpatient (REF) | payer MEDICARE, MEDICAID ==
[~2025-05-22] MED LIST changes: +AMLO-751 PO; -AMLO10TA PO
[2025-05-22 16:55] LABS: ALT/SGPT 25 U/L (7.0-40); AST/SGOT 20 U/L (<34); CALCIUM LEVEL 8.5 MG/DL (8.3-10.6); CARBON DIOXIDE LEVEL 27 MMOL/L (20-31); CHLORIDE LEVEL 104 MMOL/L (98-107); CHOLESTEROL LEVEL 143 MG/DL (<200); CHOLESTEROL RISK RATIO 2.60 (<5); CREATININE FOR GFR 0.89 MG/DL (0.70-1.30); GLOMERULAR FILTRATION RATE > 90.0 (>49); LDL CHOLESTEROL 66.3 MG/DL (<100); NON-HDL-C 88.1 MG/DL; POTASSIUM SERUM 4.0 MMOL/L (3.5-5.1); SODIUM LEVEL 141 MMOL/L (136-145); TRIGLYCERIDES LEVEL 109 MG/DL (<150)
[2025-05-22 17:07] LABS: ESTIMATED AVERAGE GLUCOSE 140.0 MG/DL (60-110)
[2025-05-22 17:59] LABS: BASO # 0.0 10^3/uL (0.0-0.2); BASO % 0.7 % (0.0-1.0); EOS # 0.7 10^3/uL (0.0-0.5); EOS % 10.7 % (0.0-3.0); LYMPH # 1.2 10^3/uL (1.5-5.0); LYMPH % 19.6 % (24.0-44.0); MONO # 0.3 10^3/uL (0.0-0.8); MONO % 4.4 % (2.0-8.0); NEUTROPHILS # 3.9 10^3/uL (1.5-8.5); NEUTROPHILS % 64.3 % (36.0-66.0); PLATELET COUNT, AUTOMATED 176 10^3/uL (150-450)
== END ==
LOC: M SFHCLERA 09:23
PROVIDERS: ATTEND Student in an Organized Health Care Education/Training Program
DX: E11.9 Type 2 diabetes mellitus without complications (principal)

== ENCOUNTER → 2025-06-10 | Outpatient (CLI) | payer MEDICARE, MEDICAID | LOC: M SOG 06:57 | PROVIDERS: ATTEND Orthopaedic Surgery | DX: Z53.9 Procedure and treatment not carried out, unspecified reason (principal) ==

== ENCOUNTER → 2025-06-16 | Outpatient (CLI) | payer MEDICARE, MEDICAID | LOC: M PLAIMG 12:35 | PROVIDERS: ATTEND Student in an Organized Health Care Education/Training Program | DX: M51.26 Other intervertebral disc displacement, lumbar region (principal); M47.816 Spondylosis without myelopathy or radiculopathy, lumbar region ==

== ENCOUNTER → 2025-06-17 | Outpatient (CLI) | payer MEDICARE, MEDICAID | LOC: M SOG 06:51 | PROVIDERS: ATTEND Orthopaedic Surgery | DX: M25.532 Pain in left wrist (principal); M25.531 Pain in right wrist ==

== ENCOUNTER → 2025-06-25 | Outpatient (CLI) | payer MEDICARE, MEDICAID ==
[~2025-06-25] MED LIST changes: -ASPI-655 PO; +ASPI-737 PO
== END ==
LOC: M SOG 07:22
PROVIDERS: ATTEND Orthopaedic Surgery
DX: M25.532 Pain in left wrist (principal); M25.531 Pain in right wrist

== ENCOUNTER → 2025-07-01 | Outpatient (CLI) | payer MEDICARE, MEDICAID | LOC: M RAD 11:32 | PROVIDERS: ATTEND Internal Medicine Pulmonary Disease | DX: Z12.2 Encounter for screening for malignant neoplasm of respiratory organs (principal); F17.210 Nicotine dependence, cigarettes, uncomplicated ==

== ENCOUNTER → 2025-08-26 | Outpatient (REF) | payer MEDICARE, MEDICAID | LOC: M SFHCPLAZ 11:02 | PROVIDERS: ATTEND Student in an Organized Health Care Education/Training Program | DX: Z53.9 Procedure and treatment not carried out, unspecified reason (principal) ==

== ENCOUNTER → 2025-09-09 | Outpatient (REF) | payer MEDICARE, MEDICAID | LOC: M SFHCLERA 16:59 | PROVIDERS: ATTEND Student in an Organized Health Care Education/Training Program | DX: J06.9 Acute upper respiratory infection, unspecified (principal) ==

== ENCOUNTER → 2025-09-17 | Outpatient (CLI) | payer MEDICARE, MEDICAID | LOC: M PLAIMG 10:02 | PROVIDERS: ATTEND Student in an Organized Health Care Education/Training Program | DX: M47.812 Spondylosis without myelopathy or radiculopathy, cervical region (principal); J06.9 Acute upper respiratory infection, unspecified ==